=== PATIENT | male | born 1985 | race Caucasian/White ===

== ENCOUNTER 2018-08-14 10:34 | Emergency (ER) | payer SELFPAY ==
[2018-08-14 11:38] LABS: ALT (SGPT) 40 U/L (8-55); AST (SGOT) 38 U/L (5-34); Albumin 5.1 g/dL (3.5-5.0); Alkaline Phosphatase 100 U/L (40-150); Anion Gap 19 mmol/L (10-20); BUN (Urea Nitrogen) 10 mg/dL (8.9-20.6); Bilirubin, Total 1.4 mg/dL (0.2-1.2); Calc. Creatinine Clearance 0 mL/min (70-130); Calcium 10.2 mg/dL (7.8-10.44); Carbon Dioxide 24 mmol/L (22-29); Chloride 99 mmol/L (98-107); Estimated GFR-MDRD 62; Globulin 3.1 g/dL (2.4-3.5); Glucose 108 mg/dL (70-105); Lipase 5 U/L (8-78); Potassium 3.8 mmol/L (3.5-5.1); Protein, Total 8.2 g/dL (6.0-8.3); Sodium 138 mmol/L (136-145)
[2018-08-14 11:41] LABS: Bilirubin Moderate (Negative); Blood, Urine Negative (Negative); Clarity CLOUDY (Clear); Glucose, Urine (Dipstick) Negative (Negative); Leukocyte Small (Negative); Nitrite Positive (Negative); Protein, Urine (Dipstick) 100 mg/dL (Neg-Trace); Specific Gravity, Urine 1.032 (1.002-1.036)
[2018-08-14 11:43] LABS: Band 12 % (5-11); Eosinophils 6 % (0-10); Hemoglobin 17.6 g/dL (14.0-18.0); Lymphocytes 15 % (21-51); MDiff Complete? YES; Mean Corpuscular HGB CONC 34.4 g/dL (32.0-36.0); Mean Corpuscular Hemoglobin 31.7 pg (27.0-31.0); Mean Corpuscular Volume 91.9 fL (78.0-98.0); Mean Platelet Volume 7.5 fL (7.4-10.4); Monocytes 6 % (0-10); Neutrophil 61 % (42-75); Platelet Count 192 thou/uL (130-400); RBC Distribution Width 12.2 % (11.5-14.5); Red Blood Cell (RBC) Count 5.57 mill/uL (4.70-6.10); White Blood Cell (WBC) Count 7.7 thou/uL (4.8-10.8)
[2018-08-14 11:44] LABS: Bacteria/HPF None Seen HPF (None Seen); Pathc Cast-AUWi Flag 2.03 (0-2.49); RBC/HPF 0-3 HPF (0-3)
[2018-08-14 11:47] LABS: Hyaline Casts/LPF 0-3 HYALINE CAST LPF (0-3 Hyaline); Renal Epithelial None Seen HPF (0-3); Transitional Epithelial NONE SEEN HPF (0-3)
[2018-08-14] MEDS ORDERED: Promethazine HCl 25 MG/ML VIAL ONE (12:11)
[2018-08-14] MEDS ORDERED: Ondansetron PF 4 MG/2 ML Vial ONE (12:11)
== END 2018-08-14 15:36 | disposition home or self-care (01) ==
LOC: ERS 10:34
DX: R11.2 Nausea with vomiting, unspecified (principal); R10.9 Unspecified abdominal pain; F17.210 Nicotine dependence, cigarettes, uncomplicated
CPT/HCPCS: 36415; 80053; 81003; 81015; 83690; 85025; 87081; 87430; 96361; 96365; 96375; J2405; J2550

== ENCOUNTER 2019-08-26 12:55 | Emergency (ER) | payer SELFPAY ==
[2019-08-26] MEDS ORDERED: Morphine 4 MG/ML VIAL ONE (14:33)
== END 2019-08-26 14:47 | disposition home or self-care (01) ==
LOC: ERS 12:55
DX: M54.5 Low back pain (principal); F17.210 Nicotine dependence, cigarettes, uncomplicated
CPT/HCPCS: 96372; 99282; J2270

== ENCOUNTER 2020-02-26 13:52 | Observation (INO) | payer OTHER, SELFPAY ==
[2020-02-26] MEDS ORDERED: Morphine 4 MG/ML VIAL ONE (14:20)
[2020-02-26] MEDS ORDERED: Ondansetron PF 4 MG/2 ML Vial ONE ×3 (14:20→15:53)
[2020-02-26] MEDS ORDERED: Dexamethasone 10 MG/ML VIAL ONE (14:20)
[2020-02-26 14:21] LABS: #Basophils 0.1 thou/uL (0.0-0.2); #Eosinphils 0.1 thou/uL (0.0-0.7); #Lymphocytes 1.2 thou/uL (1.20-3.40); #Monocytes 0.9 thou/uL (0.11-0.59); #Neutrophils 6.1 thou/uL (1.40-6.50); %Basophils 0.8 % (0.0-1.0); %Eosinophils 0.6 % (0.0-10.0); %Lymphocytes 14.1 % (21.0-51.0); %Monocytes 11.1 % (0.0-10.0); %Neutrophils 73.4 % (42.0-75.0); Hemoglobin 18.5 g/dL (14.0-18.0); Mean Corpuscular HGB CONC 33.7 g/dL (32.0-36.0); Mean Corpuscular Hemoglobin 32.2 pg (27.0-31.0); Mean Corpuscular Volume 95.7 fL (78.0-98.0); Platelet Count 207 thou/uL (130-400); RBC Distribution Width 12.2 % (11.5-14.5); Red Blood Cell (RBC) Count 5.75 mill/uL (4.70-6.10); White Blood Cell (WBC) Count 8.4 thou/uL (4.8-10.8)
--- NOTE | 2020-02-26 14:35 | RAD ---
EXAM: Single view of the chest HISTORY: Chest pain COMPARISON: None FINDINGS: Single view of the chest shows a normal sized cardiomediastinal silhouette. There is eleva tion the right hemidiaphragm. There is no evidence of consolidation, mass, or pleural effusion. Hardware seen in the right clavicle. IMPRESSION: No evidence of acute cardiopulmonary disease
[2020-02-26] MEDS ORDERED: Azithromycin 500 MG VIAL ONE (14:43)
[2020-02-26] MEDS ORDERED: Sodium Chloride 0.9% 100 ML ONE (14:43)
[2020-02-26] MEDS ORDERED: cefTRIAXone\\ROCEPHIN 2 GM VIAL ONE (14:43)
[2020-02-26 14:44] LABS: ALT (SGPT) 90 U/L (8-55); AST (SGOT) 115 U/L (5-34); Albumin 5.3 g/dL (3.5-5.0); Alkaline Phosphatase 95 U/L (40-110); Anion Gap 19 mmol/L (10-20); BUN (Urea Nitrogen) 7 mg/dL (8.9-20.6); Bilirubin, Total 2.1 mg/dL (0.2-1.2); Calc. Creatinine Clearance 0 mL/min (70-130); Calcium 10.5 mg/dL (7.8-10.44); Carbon Dioxide 26 mmol/L (22-29); Chloride 97 mmol/L (98-107); Estimated GFR-MDRD 74; Globulin 2.7 g/dL (2.4-3.5); Glucose 110 mg/dL (70-105); Potassium 3.3 mmol/L (3.5-5.1); Sodium 139 mmol/L (136-145)
[2020-02-26] MEDS ORDERED: Aspirin Chewable 81 MG TAB ONE (14:44)
[2020-02-26 15:05] LABS: CKMB 5.9 ng/mL (0-6.6)
[2020-02-26] MEDS ORDERED: Lorazepam 2 MG/ML VIAL ONE ×2 (15:51→16:30)
[2020-02-26 15:56] LABS: SARS-CoV-2 NAA Rapid Test Not Detected (NotDetected)
[2020-02-26 16:05] LABS: Bacteria/HPF None Seen HPF (None Seen); Bilirubin 1+ (Negative); Blood, Urine Negative (Negative); Clarity Clear (Clear); Glucose, Urine (Dipstick) Normal (Negative); Ketone, Urine 100 mg/dL (Negative); Leukocyte Negative Leu/uL (Negative); Nitrite Negative (Negative); Protein, Urine (Dipstick) 200 mg/dL (Neg-Trace); RBC/HPF 0-3 HPF (0-3); Specific Gravity, Urine 1.031 (1.002-1.036); Squamous Epithelial 0-3 HPF (0-3); WBC/HPF 0-3 HPF (0-3); pH, Urine 6.5 (5.0-9.0)
[2020-02-26 16:12] LABS: Amphetamine Not Detected (NotDetected); Barbiturates Screen Not Detected (NotDetected); Benzodiazepine Screen Not Detected (NotDetected); Cocaine Metabolite Screen Not Detected (NotDetected); Medtox Control Line Valid? VALID (VALID); Medtox Reader # READER 4; Methadone Not Detected (NotDetected); Methamphetamine Not Detected (NotDetected); Opiate Screen Detected (NotDetected); Oxycodone Screen Not Detected (NotDetected); Phencyclidine (PCP) Not Detected (NotDetected); THC/Cannabinoid Screen Detected (NotDetected); Tricyclic Screen Not Detected (NotDetected)
[2020-02-26] MEDS ORDERED: Calcium Carbonate 500 MG ChewTAB PO PRN (17:00)
[2020-02-26] MEDS ORDERED: Sodium Chloride 0.9% 1,000 ML IV SCH (17:00)
[2020-02-26] MEDS ORDERED: HYDROcodone/Acetaminophen 5/325 mg Tablet PO PRN (17:00)
[2020-02-26] MEDS ORDERED: Ondansetron PF 4 MG/2 ML Vial IVP PRN (17:00)
[2020-02-26] MEDS ORDERED: Guaifenesin DM 100-10/5 ML UDCUP PO PRN (17:00)
[2020-02-26] MEDS ORDERED: Bisacodyl 10 MG SUPP PR PRN (17:00)
[2020-02-26] MEDS ORDERED: Acetaminophen 325 MG TAB PO PRN (17:00)
[2020-02-26] MEDS ORDERED: Nitroglycerin 0.4 MG TAB (25 Tab Bottle) PO PRN (17:00)
[2020-02-26] MEDS ORDERED: Senokot S 8.6-50 MG TAB PO PRN (17:00)
[2020-02-26] MEDS ORDERED: Morphine 2 MG/ML VIAL SLOW IVP PRN (17:08)
--- NOTE | 2020-02-26 17:14 | ULT ---
Sonogram right upper quadrant HISTORY: Right upper quadrant pain. FINDINGS: Gallbladder shows no stones. Echogenicity within the dependent portion favored to represent subtle non-shadowing echogenic debris within the dependent portion. No gallbladder wall thickening or pericholecystic fluid. Common duct is not well visualized. No evide nce of biliary obstruction. Liver is diffusely echogenic. No focal abnormalities. IMPRESSION : Biliary sludge is consistent with chronic gallbladder dyskinesis. No evidence of acute biliary obstru ction. Hepato-steatosis.
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
[2020-02-26 19:54] LABS: CKMB 4.4 ng/mL (0-6.6)
[2020-02-26 21:21] VITALS: BMI 29.3
[2020-02-26] MEDS: Famotidine 20 MG TAB PO SCH (22:13)
[2020-02-26] MEDS: hydrALAZINE 20 MG/ML VIAL SLOW IVP PRN (22:13)
[2020-02-27] MEDS ORDERED: Labetalol HCl 100 MG/20 ML VIAL SLOW IVP PRN (00:17)
[2020-02-27] MEDS ORDERED: Nitroglycerin 2% Ointment 1 INCH/1 GM Packet TOP SCH (00:30)
--- NOTE | 2020-02-27 03:29 | PDOC.EVN ---
Event Note - Event Note Event Note: Overnight, patient continued to be hypertensive with his heart rate fluctuating , going between SR and SA. Denies chest pain currently.
[2020-02-27 04:21] LABS: #Lymphocytes 0.7 thou/uL (1.20-3.40); #Monocytes 0.7 thou/uL (0.11-0.59); #Neutrophils 5.3 thou/uL (1.40-6.50); %Basophils 0.2 % (0.0-1.0); %Eosinophils 0.2 % (0.0-10.0); %Lymphocytes 10.2 % (21.0-51.0); %Monocytes 10.7 % (0.0-10.0); %Neutrophils 78.8 % (42.0-75.0); Hemoglobin 16.2 g/dL (14.0-18.0); Mean Corpuscular HGB CONC 33.3 g/dL (32.0-36.0); Mean Corpuscular Hemoglobin 31.8 pg (27.0-31.0); Mean Corpuscular Volume 95.5 fL (78.0-98.0); Platelet Count 176 thou/uL (130-400); RBC Distribution Width 12.2 % (11.5-14.5); Red Blood Cell (RBC) Count 5.09 mill/uL (4.70-6.10); White Blood Cell (WBC) Count 6.7 thou/uL (4.8-10.8)
[2020-02-27 05:11] LABS: Troponin I 0.037 ng/mL (< 0.028)
[2020-02-27 05:17] LABS: Hemoglobin A1c 5.9 % (4.0-6.0)
[2020-02-27 05:57] LABS: ALT (SGPT) 70 U/L (8-55); AST (SGOT) 69 U/L (5-34); Albumin 4.6 g/dL (3.5-5.0); Alkaline Phosphatase 76 U/L (40-110); Anion Gap 17 mmol/L (10-20); BUN (Urea Nitrogen) 8 mg/dL (8.9-20.6); Bilirubin, Total 1.1 mg/dL (0.2-1.2); Calc. Creatinine Clearance 153 mL/min (70-130); Carbon Dioxide 25 mmol/L (22-29); Chloride 101 mmol/L (98-107); Cholesterol 298 mg/dl (< 200 Desired); Estimated GFR-MDRD 80; Globulin 2.3 g/dL (2.4-3.5); Glucose 130 mg/dL (70-105); HDL Cholesterol 75 mg/dL (>60 Neg Risk); Potassium 4.2 mmol/L (3.5-5.1); Protein, Total 6.9 g/dL (6.0-8.3); Sodium 139 mmol/L (136-145)
[2020-02-27 06:11] LABS: LDL Cholesterol, Calculated 190 mg/dL; Triglycerides 109 mg/dL (Less than 150)
--- NOTE | 2020-02-27 09:09 | PDOC.HOSPP ---
- Subjective Encounter Date: 02/27/20 Encounter Time: 16:20 Subjective: Patient with improvement in his chest pain. Appears more positional. Seen by Dr. Jackson and plans to watch till tomorrow, likely no cath. - Objective Vital Signs & Weight: Vital Signs (12 hours) Temp Pulse Resp BP BP Pulse Ox 02/27/20 08:03 98.6 F 88 16 172/112 H 95 02/27/20 03:06 98.4 F 88 16 170/105 H 95 02/27/20 00:32 180/104 H 02/27/20 00:00 120 H 194/109 H 02/26/20 22:57 95 02/26/20 22:13 98 195/112 H Weight Weight 241 lb 3.2 oz I&O: 02/26/20 02/27/20 02/28/20 06:59 06:59 06:59 Intake Total 240 Balance 240 Result Diagrams: 02/27/20 03:59 02/27/20 03:59 Hospitalist ROS - Review of Systems Constitutional: denies: fever, chills Respiratory: denies: cough, shortness of breath Cardiovascular: reports: chest pain. denies: palpitations Gastrointestinal: denies: nausea, vomiting, abdominal pain - Medication Medications: Active Medications Generic Name Dose Route Start Last Admin Trade Name Freq PRN Reason Stop Dose Admin Famotidine 20 mg 02/26/20 21:00 02/26/20 22:13 Pepcid PO 20 mg BID ZEB Administration Hydralazine HCl 10 mg 02/26/20 21:38 02/26/20 22:13 Apresoline SLOW IVP 10 mg Q4H PRN Administration SBP > 180 and HR < 70 Morphine Sulfate 2 mg 02/26/20 17:08 02/26/20 23:04 Morphine SLOW IVP 2 mg Q4H PRN Administration Chest Pain/BP Elevations Ondansetron HCl 4 mg 02/26/20 17:00 02/26/20 23:59 Zofran IVP 4 mg Q6H PRN Administration Nausea/Vomiting - Exam General Appearance: NAD, awake alert ENT: moist mucosa ENT - other findings: very red, flushed face Heart: RRR, no murmur, no gallops, no rubs Respiratory: CTAB, no wheezes, no rales, no ronchi Gastrointestinal: soft, non-tender, non-distended, normal bowel sounds Psychiatric: normal affect, normal behavior, A&O x 3 Psychiatric - other findings: maybe slightly anxious affect Hosp A/P (1) Chest pain, rule out acute myocardial infarction Code(s): R07.9 - CHEST PAIN, UNSPECIFIED Status: Acute (2) Hypertension Code(s): I10 - ESSENTIAL (PRIMARY) HYPERTENSION Status: Acute (3) Alcohol abuse Code(s): F10.10 - ALCOHOL ABUSE, UNCOMPLICATED Status: Chronic (4) Tobacco abuse Code(s): Z72.0 - TOBACCO USE Status: Chronic (5) Marijuana abuse Code(s): F12.10 - CANNABIS ABUSE, UNCOMPLICATED Status: Chronic - Plan Stress test this morning negative but with depressed EF. Consulted Dr. Jackson and ordered ECHO. Possibly pericarditis per Dr. Jackson or heart strain from uncontrolled HTN. Trying BP control, colchicine, and NSAIDS. Watch overnight. Possibly home in AM if doing well. ASE protocol in case of EtOH withdrawal.
--- NOTE | 2020-02-27 12:25 | NM ---
Radionucleotide stress and rest myocardial perfusion scan with CT attenuation correction and SPECT im aging Left ventricular wall motion evaluation and ejection fraction HISTORY: Chest pain. FINDINGS: Adenosine protocol. There is homogeneous uptake of radiotracer throughout the left ventricu lar myocardium. No focal perfusion defect or reversibility. QGS analysis of gated SPECT images shows global hypokinesis. Most pronounced at the septum. Ejection fraction calculated at 40%. IMPRESSION : No scintigraphic evidence of ischemia. Depressed left ventricular ejection fraction of 40%
[2020-02-27] MEDS ORDERED: Lisinopril 20 MG TAB PO SCH (12:45)
[2020-02-27] MEDS ORDERED: Carvedilol 6.25 MG TAB PO SCH (12:45)
[2020-02-27] MEDS: Aspirin 325 mg Enteric Coated Tablet PO SCH (12:49)
[2020-02-27] MEDS: Famotidine 20 MG TAB PO SCH ×2 (12:50→20:18)
[2020-02-27] MEDS: Enoxaparin Sodium 40 MG/0.4 ML SYRINGE SC SCH ×2 (12:51→16:18)
--- NOTE | 2020-02-27 13:48 | CON ---
DATE OF CONSULTATION: 02/27/2020 REASON FOR CONSULTATION: Chest pain and cardiomyopathy. HISTORY OF PRESENT ILLNESS: Mr. Pack is a 34-year-old gentleman with no significant past medical history, who recently presented with chest pain. It began yesterday. It has been constant, although comes in waves, where it appears worse at times versus others. He described it as dull. It is worse with lying down and movement left and right. He recently underwent noninvasive stress study with no ischemia present. LVEF 40%. Echo is currently pending. Cardiac risk factors include positive tobacco use. PAST MEDICAL HISTORY: Shoulder surgery, spine surgery. HOME MEDICATION: None. ALLERGIES: TORADOL. REVIEW OF SYSTEMS: A 10-point review of systems is reviewed as above, otherwise negative. PHYSICAL EXAMINATION: GENERAL: Patient is a pleasant man, who is in no acute distress. The patient appears their stated age. VITAL SIGNS: Blood pressure 177/113, respirations 20. NEUROLOGIC: The patient is alert and oriented x3 with no focal neurologic deficits. HEENT: Sclerae without icterus. Mouth has moist mucous membranes with normal pallor. NECK: No JVD. Carotid upstroke brisk. No bruits bilaterally. LUNGS: Clear to auscultation with unlabored respirations. BACK: No scoliosis or kyphosis. CARDIAC: Regular rate and rhythm with normal S1 and S2. No S3 or S4 noted. No significant rubs, murmurs, thrills, or gallops noted throughout the precordium. PMI is not displaced. There is no parasternal heave. ABDOMEN: Soft, nontender, nondistended. No peritoneal signs present. No hepatosplenomegaly. No abnormal striae. EXTREMITIES: 2+ femoral and 2+ dorsalis pedis pulses. No cyanosis, clubbing, or edema. SKIN: No gross abnormalities. PERTINENT LABORATORY DATA: Hemoglobin 16.2, hematocrit 40.6. T-max 99.2. IMPRESSION: 1. Chest pain. 2. Mild cardiomyopathy. 3. Tobacco abuse. RECOMMENDATIONS: Mr. Pack does appear to have a mild cardiomyopathy. This may be the etiology to his chest pain. He may also have pericarditis versus myocarditis, although his CK-MB and troponin are within normal limits. At this point, I recommend ibuprofen. He does have a past allergy to Toradol only. He has taken ibuprofen and Naprosyn at home in the past without issues. We would also add colchicine. We would re-evaluate in a.m. We will also review echo. I did industrial relations counselor him on cessation of all tobacco products. Job ID: [id number]
[2020-02-27] MEDS: Ibuprofen 800 MG TAB PO SCH ×2 (14:48→20:18)
[2020-02-27] MEDS ORDERED: Thiamine HCl 200 MG/2 ML VIAL IM SCH (15:45)
[2020-02-27] MEDS ORDERED: Diazepam 5 MG TAB PO SCH (15:45)
[2020-02-27] MEDS ORDERED: Thiamine 100 MG TAB PO SCH (16:00)
[2020-02-27] MEDS ORDERED: Magnesium Oxide 400 MG TAB PO SCH (16:00)
[2020-02-27] MEDS: hydrALAZINE 20 MG/ML VIAL SLOW IVP PRN (16:27)
[2020-02-27] MEDS: Carvedilol 6.25 MG TAB PO SCH (17:03)
[2020-02-27] MEDS: Diazepam 5 MG TAB PO PRN ×2 (18:28→23:30)
[2020-02-27] MEDS: Colchicine 0.6 MG TAB PO SCH (20:18)
[2020-02-28] MEDS: Ibuprofen 800 MG TAB PO SCH ×3 (03:47→13:38)
[2020-02-28] MEDS ORDERED: Diazepam 5 MG TAB PO PRN (04:00)
[2020-02-28] MEDS ORDERED: Lisinopril 20 MG TAB PO SCH (09:00)
[2020-02-28] MEDS ORDERED: Hydrochlorothiazide 25 MG TAB PO SCH (09:00)
[2020-02-28] MEDS ORDERED: Folic Acid 1 MG TAB PO SCH (09:00)
[2020-02-28] MEDS ORDERED: Thiamine 100 MG TAB PO SCH (09:00)
[2020-02-28] MEDS ORDERED: Magnesium Oxide 400 MG TAB PO SCH (09:00)
[2020-02-28] MEDS ORDERED: Multivitamin W/ Minerals 1 TAB PO SCH (09:00)
[2020-02-28] MEDS: Aspirin 325 mg Enteric Coated Tablet PO SCH (10:01)
[2020-02-28] MEDS: Carvedilol 6.25 MG TAB PO SCH (10:01)
[2020-02-28] MEDS: Colchicine 0.6 MG TAB PO SCH (10:02)
[2020-02-28] MEDS: Famotidine 20 MG TAB PO SCH (10:02)
[2020-02-28] MEDS: Enoxaparin Sodium 40 MG/0.4 ML SYRINGE SC SCH (10:02)
[2020-02-28] MEDS ORDERED: Senokot S 8.6-50 MG TAB PO PRN (11:00)
[2020-02-28 12:59] VITALS: BP 151/100
[2020-02-28 13:00] VITALS: TEMP 98.4
--- NOTE | 2020-02-28 13:26 | PRG ---
DATE OF SERVICE: 02/28/2020 SUBJECTIVE: Mr. Pack is feeling much better today. He states he could finally lie flat overnight. He still has some chest pressure, but is much better versus yesterday. OBJECTIVE: VITAL SIGNS: Blood pressure 151/100, pulse 74, temperature 98.4. LUNGS: Clear to auscultation. HEART: Regular rate and rhythm. ABDOMEN: Soft, nontender, nondistended. EXTREMITIES: No edema. IMPRESSION: Pericarditis. RECOMMENDATIONS: Overall, LVEF did appear to be 45% to 50%, but likely close to 50%. Continue current treatment. Continue ibuprofen 800 mg one p.o. t.i.d. for 2 weeks in addition to colchicine 0.6 mg one p.o. t.i.d. I did state that if he began having loose stools, to cut back on the colchicine to 0.6 mg q.a.m. We will also recommend Protonix 40 q.a.m. due to gastric irritation. We will also recommend adding hydrochlorothiazide for blood pressure management. Once blood pressure is stable, he will be okay from my standpoint to discharge home with close outpatient followup. Job ID: [id number]
--- NOTE | 2020-02-28 15:33 | PDOC.HOSPP ---
- Subjective Encounter Date: 02/28/20 Encounter Time: 09:30 Subjective: Patient without further chest pain. Understand he needs to stop smoking and drinking alcohol. - Objective Vital Signs & Weight: Vital Signs (12 hours) Temp Pulse Resp BP BP Pulse Ox 02/28/20 12:03 151/100 H 02/28/20 11:50 98.4 F 74 13 151/100 H 94 L 02/28/20 10:02 160/101 H 02/28/20 10:01 160/101 H 02/28/20 08:00 160/101 H 02/28/20 07:40 97.6 F 64 13 160/101 H 95 02/28/20 03:50 98.2 F 71 18 157/102 H 95 Weight Weight 241 lb 3.2 oz I&O: 02/27/20 02/28/20 02/29/20 06:59 06:59 06:59 Intake Total 240 1800 480 Output Total 1025 Balance 240 775 480 Result Diagrams: 02/27/20 03:59 02/27/20 03:59 Hospitalist ROS - Review of Systems Constitutional: denies: fever, chills Respiratory: denies: cough, shortness of breath Cardiovascular: denies: chest pain, palpitations Gastrointestinal: denies: nausea, vomiting, abdominal pain - Exam General Appearance: NAD, awake alert ENT: moist mucosa Heart: RRR, no murmur, no gallops, no rubs Respiratory: CTAB, no wheezes, no rales, no ronchi Gastrointestinal: soft, non-tender, non-distended, normal bowel sounds Psychiatric: normal affect, normal behavior, A&O x 3 Hosp A/P (1) Chest pain, rule out acute myocardial infarction Code(s): R07.9 - CHEST PAIN, UNSPECIFIED Status: Acute (2) Hypertension Code(s): I10 - ESSENTIAL (PRIMARY) HYPERTENSION Status: Acute (3) Alcohol abuse Code(s): F10.10 - ALCOHOL ABUSE, UNCOMPLICATED Status: Chronic (4) Tobacco abuse Code(s): Z72.0 - TOBACCO USE Status: Chronic (5) Marijuana abuse Code(s): F12.10 - CANNABIS ABUSE, UNCOMPLICATED Status: Chronic - Plan Stress test yesterday negative but with depressed EF. Consulted Dr. Jackson and ordered ECHO redemonstrating decreased EF. Possibly pericarditis per Dr. Jackson or heart strain from uncontrolled HTN. Trying BP control, colchicine, and NSAIDS. Cleared for d/c this morning and f/u in clinic in [address] Jackson.
--- NOTE | 2020-02-28 19:02 | DIS ---
DATE OF ADMISSION: 02/26/2020 DATE OF DISCHARGE: 02/28/2020 PRIMARY CARE PHYSICIAN: Praveen Gonzales. REASON FOR ADMISSION: Chest pain. DIAGNOSES AT DISCHARGE: 1. Chest pain, resolved. 2. Hypertension. 3. Depressed ejection fraction. 4. Tobacco abuse. 5. Alcohol abuse. 6. Marijuana abuse. PROCEDURES: 1. Ultrasound of right upper quadrant showing biliary sludge consistent with chronic gallbladder dyskinesia. No evidence of acute biliary obstruction. There is hepatosteatosis. 2. Nuclear medicine cardiac stress testing showing no evidence for ischemia with a depressed left ejection fraction of 40%. 3. Echocardiogram showing ejection fraction of 45% to 50%. No other significant abnormalities. CONSULTATIONS: Cardiology, Dr. Jackson. SUMMARY OF HOSPITAL COURSE: This is a 34-year-old white male with a history of left-sided chest pain radiating to his left shoulder and upper arm started the day before admission. He presented to the emergency room. There, he was noted to have some elevated liver function tests, thought to be secondary to his alcohol intake and right upper quadrant ultrasound showing fatty liver. He also had some moderately elevated blood pressures. Negative troponins and negative EKG. He was monitored in the hospital. Troponins came back negative. He had a nuclear medicine stress test with above results. Due to the decreased ejection fraction, we did consult Cardiology, Dr. Jackson. He ordered an echocardiogram. On further eliciting details about the pain, Dr. Jakcson determined that the pain was likely either the chest wall or it was possible pericardial inflammation. He did start the patient on colchicine and NSAIDs with resolution of his chest pain. On the day of discharge, he was having some elevated blood pressure, so he did start the patient on hydrochlorothiazide as well. He has recommended the patient to follow up with him in his clinic in 2 weeks. The patient has been instructed to stop all alcohol and tobacco and to establish with a primary care doctor. DISCHARGE MANAGEMENT: Discharged home. ACTIVITY: As tolerated. DIET: Healthy-heart diet. FOLLOWUP: Follow up with Dr. Jackson in 2 weeks. DISCHARGE MEDICATIONS: 1. Colchicine 0.6 mg twice a day, 30 tablets dispensed. 2. Hydrochlorothiazide 12.5 mg daily, 30 tablets dispensed. 3. Motrin 800 mg 3 times a day, 45 tablets dispensed. 4. Protonix 40 mg daily while on the ibuprofen, 15 tablets dispensed. Job ID: [id number]
== END 2020-02-28 14:50 | disposition home or self-care (01) ==
LOC: ERS 13:52 → ERHOLD 17:01 → 2NO 21:12
PROVIDERS: ADMIT Internal Medicine; ATTEND Internal Medicine
DX: R07.81 Pleurodynia (principal); I10 Essential (primary) hypertension; R93.1 Abnormal findings on diagnostic imaging of heart and coronary circulation; F17.210 Nicotine dependence, cigarettes, uncomplicated; F10.10 Alcohol abuse, uncomplicated; F12.10 Cannabis abuse, uncomplicated; E86.0 Dehydration; R79.89 Other specified abnormal findings of blood chemistry; K76.0 Fatty (change of) liver, not elsewhere classified; I42.9 Cardiomyopathy, unspecified; Z20.828 Contact with and (suspected) exposure to other viral communicable diseases; Z88.6 Allergy status to analgesic agent
CPT/HCPCS: 36415; 71045; 76705; 78452; 80053; 80061; 80306; 81003; 81015; 82553; 83036; 83605; 83690; 83880; 84443; 84484; 85025; 85379; 87040; 87086; 93005; 93017; 93306; 94760; 96361; 96365; 96372; 96375; 96376; A9500; G0378; J0153; J0360; J0456; J0696; J1100; J1650; J2060; J2270; J2405; J3490; U0002

== ENCOUNTER 2020-04-02 12:58 | Emergency (ER) | payer SELFPAY ==
[2020-04-02] MEDS ORDERED: Ibuprofen 800 MG TAB ONE (13:41)
[2020-04-02] MEDS ORDERED: Colchicine 0.6 MG TAB PO SCH (14:00)
[2020-04-02 14:02] LABS: #Basophils 0.1 thou/uL (0.0-0.2); #Eosinphils 0.1 thou/uL (0.0-0.7); #Lymphocytes 1.4 thou/uL (1.20-3.40); #Monocytes 0.9 thou/uL (0.11-0.59); #Neutrophils 4.4 thou/uL (1.40-6.50); %Lymphocytes 20.6 % (21.0-51.0); %Monocytes 13.1 % (0.0-10.0); %Neutrophils 64.4 % (42.0-75.0); Hemoglobin 16.4 g/dL (14.0-18.0); Mean Corpuscular HGB CONC 33.9 g/dL (32.0-36.0); Mean Corpuscular Hemoglobin 32.6 pg (27.0-31.0); Mean Platelet Volume 7.2 fL (7.4-10.4); Platelet Count 229 thou/uL (130-400); RBC Distribution Width 12.3 % (11.5-14.5); Red Blood Cell (RBC) Count 5.04 mill/uL (4.70-6.10); White Blood Cell (WBC) Count 6.8 thou/uL (4.8-10.8)
[2020-04-02 14:28] LABS: ALT (SGPT) 81 U/L (8-55); AST (SGOT) 82 U/L (5-34); Albumin 4.6 g/dL (3.5-5.0); Alkaline Phosphatase 73 U/L (40-110); Anion Gap 17 mmol/L (10-20); BUN (Urea Nitrogen) 8 mg/dL (8.9-20.6); Bilirubin, Total 0.6 mg/dL (0.2-1.2); CK (CPK) 375 U/L (30-200); Calc. Creatinine Clearance 0 mL/min (70-130); Carbon Dioxide 26 mmol/L (22-29); Chloride 100 mmol/L (98-107); Estimated GFR-MDRD Greater than 90; Globulin 2.4 g/dL (2.4-3.5); Glucose 106 mg/dL (70-105); Potassium 3.7 mmol/L (3.5-5.1); Sodium 139 mmol/L (136-145)
--- NOTE | 2020-04-02 14:34 | RAD ---
PORTABLE CHEST: Date: 04/02/2020 HISTORY: Chest pain. Comparison made to exam of 03/21/2020. FINDINGS: There is some linear stranding and parenchymal opacity in the right lung base with elevated right hem idiaphragm. These findings are stable from the recent study. The left lung is well aerated and clear. Heart and mediastinum unremarkable. IMPRESSION: Atelectasis and density in the right infrahilar lung base with elevated right hemidiaphragm. Patient had recent CT chest of 03/21/2020. Findings appear stable. POS: [facility]
[2020-04-02] MEDS ORDERED: Labetalol HCl 100 MG/20 ML VIAL ONE (14:50)
--- NOTE | 2020-04-07 12:12 | EKG ---
Test Reason : Blood Pressure : / mmHG Vent. Rate : 075 BPM Atrial Rate : 075 BPM P-R Int : 166 ms QRS Dur : 108 ms QT Int : 408 ms P-R-T Axes : 046 078 077 degrees QTc Int : 455 ms Sinus rhythm with marked sinus arrhythmia Possible Left atrial enlargement Nonspecific ST abnormality Abnormal ECG Sub elevation diffusely Confirmed by JILLIAN HAIR M.D. ([id number]), clinical editor YONAS BARCENAS ([id number]) on 04/07/2020 12:11:44 PM Referred By: Confirmed By:JILLIAN HAIR M.D.
== END 2020-04-02 16:34 | disposition home or self-care (01) ==
LOC: ERS 12:58
DX: I10 Essential (primary) hypertension (principal); R07.89 Other chest pain; F17.210 Nicotine dependence, cigarettes, uncomplicated; Z79.899 Other long term (current) drug therapy
CPT/HCPCS: 36415; 71045; 80053; 82550; 83880; 84484; 85025; 93005; 94760

== ENCOUNTER 2020-05-21 22:24 | Inpatient (IN) | payer OTHER, SELFPAY ==
[~2020-05-21 22:24] MED LIST: Iopamidol-370 76% 500 ML 1 ML ONE
[2020-05-21 22:46] LABS: #Basophils 0.1 thou/uL (0.0-0.2); #Eosinphils 0.1 thou/uL (0.0-0.7); #Lymphocytes 2.3 thou/uL (1.20-3.40); #Monocytes 0.7 thou/uL (0.11-0.59); #Neutrophils 5.6 thou/uL (1.40-6.50); %Eosinophils 1.5 % (0.0-10.0); %Monocytes 8.2 % (0.0-10.0); %Neutrophils 63.2 % (42.0-75.0); Hemoglobin 17.8 g/dL (14.0-18.0); Mean Corpuscular HGB CONC 34.5 g/dL (32.0-36.0); Mean Corpuscular Hemoglobin 33.2 pg (27.0-31.0); Mean Corpuscular Volume 96.2 fL (78.0-98.0); Mean Platelet Volume 6.7 fL (7.4-10.4); Platelet Count 288 thou/uL (130-400); RBC Distribution Width 12.2 % (11.5-14.5); Red Blood Cell (RBC) Count 5.36 mill/uL (4.70-6.10); White Blood Cell (WBC) Count 8.8 thou/uL (4.8-10.8)
[2020-05-21 23:02] LABS: ALT (SGPT) 70 U/L (8-55); AST (SGOT) 77 U/L (5-34); Albumin 4.4 g/dL (3.5-5.0); Alkaline Phosphatase 100 U/L (40-110); Anion Gap 18 mmol/L (10-20); BUN (Urea Nitrogen) 8 mg/dL (8.9-20.6); Bilirubin, Total 0.3 mg/dL (0.2-1.2); CK (CPK) 461 U/L (30-200); Calc. Creatinine Clearance 0 mL/min (70-130); Calcium 8.9 mg/dL (7.8-10.44); Carbon Dioxide 24 mmol/L (22-29); Chloride 104 mmol/L (98-107); Estimated GFR-MDRD 70; Globulin 2.7 g/dL (2.4-3.5); Glucose 123 mg/dL (70-105); Lipase 27 U/L (8-78); Potassium 3.7 mmol/L (3.5-5.1); Protein, Total 7.1 g/dL (6.0-8.3); Sodium 142 mmol/L (136-145)
[2020-05-21 23:24] LABS: CKMB 6.3 ng/mL (0-6.6)
[2020-05-21] MEDS ORDERED: Morphine 4 MG/ML VIAL ONE (23:53)
[2020-05-22] MEDS ORDERED: Ibuprofen 800 MG TAB ONE (00:23)
[2020-05-22] MEDS ORDERED: Colchicine 0.6 MG TAB PO SCH (00:45)
[2020-05-22] MEDS ORDERED: Sodium Chloride 0.9% 1,000 ML IV SCH (01:15)
--- NOTE | 2020-05-22 01:18 | PDOC.HHP ---
Hospitalist HPI - History of Present Illness Chest pain History of Present Illness: 35-year-old gentleman with a history of alcohol abuse, history of pericarditis presents to the emergency department with a complaint of progressive worsening of chest pain. Patient reports intermittent chest pain since his diagnosis of pericarditis. He reports sudden worsening of chest pain since yesterday. Patient rated the chest pain at 7 out of 10 in maximum severity, nonradiating, worse with breathing, associated with tightness. He denied palpitation he denied diaphoresis but reported associated nausea. Patient reports binging on alcohol recently. He has been drinking a pint of vodka per day over the last f ew days. His troponin is mildly elevated in the ED. Chest x-ray unremarkable. Patient also reported dark-colored stool. His stool was Hemoccult positive in the ED. Patient was given ibuprofen and IV fluids in the ED. He is admitted for further evaluation and management. Hospitalist ROS - Review of Systems Other: Except as documented, all other systems reviewed and negative. - Medication Medications: Medication Instructions Recorded Confirmed Type Colchicine 0.6 mg PO BID #30 tab 02/28/20 Rx Aspirin 325 mg PO BID 05/22/20 05/22/20 History Ibuprofen [Motrin] 800 mg PO BID 05/22/20 05/22/20 History Losartan/Hydrochlorothiazide 1 tablet PO DAILY 05/22/20 05/22/20 History [Losartan-Hctz 100-12.5 mg Tab] cloNIDine [Catapres] 0.1 mg PO PRN PRN 05/22/20 05/22/20 History Hospitalist History - Past Medical History Other Medical History: Pericarditis, hypertension, alcohol abuse. - Past Surgical History Other Surgical History: Right shoulder surgery, low spine surgery. - Family History Other Family History: Father had an AL - Social History Smoking Status: Current every day smoker Alcohol: reports: Heavy Drugs: reports: none - Exam General Appearance: NAD, awake alert Eye: PERRL, anicteric sclera ENT: normocephalic atraumatic, no oropharyngeal lesions, moist mucosa Neck: supple, symmetric, no JVD, no thyromegaly Heart: RRR (Tachycardic), no murmur, no gallops Respiratory: CTAB, no wheezes, no rales, no ronchi, normal chest expansion Gastrointestinal: soft, non-tender, non-distended, normal bowel sounds Extremities: no cyanosis, no edema Skin: normal turgor Neurological: cranial nerve grossly intact, no weakness, no focal deficits Musculoskeletal: normal tone, normal strength Psychiatric: normal affect, normal behavior, A&O x 3 Hospitalist Results - Labs Result Diagrams: 05/21/20 22:37 05/21/20 22:37 Lab results: WBC 8.8 thou/uL (4.8-10.8) 05/21/20 22:37 Hgb 17.8 g/dL (14.0-18.0) 05/21/20 22:37 Hct 51.5 % (42.0-52.0) 05/21/20 22:37 MCV 96.2 fL (78.0-98.0) 05/21/20 22:37 Plt Count 288 thou/uL (130-400) 05/21/20 22:37 Neutrophils % 63.2 % (42.0-75.0) 05/21/20 22:37 Sodium 142 mmol/L (136-145) 05/21/20 22:37 Potassium 3.7 mmol/L (3.5-5.1) 05/21/20 22:37 Chloride 104 mmol/L (98-107) 05/21/20 22:37 Carbon Dioxide 24 mmol/L (22-29) 05/21/20 22:37 BUN 8 mg/dL (8.9-20.6) L 05/21/20 22:37 Creatinine 1.19 mg/dL (0.7-1.3) 05/21/20 22:37 Glucose 123 mg/dL (70-105) H 05/21/20 22:37 Calcium 8.9 mg/dL (7.8-10.44) 05/21/20 22:37 Total Bilirubin 0.3 mg/dL (0.2-1.2) 05/21/20 22:37 AST 77 U/L (5-34) H 05/21/20 22:37 ALT 70 U/L (8-55) H 05/21/20 22:37 Alkaline Phosphatase 100 U/L (40-110) 05/21/20 22:37 Creatine Kinase 461 U/L (30-200) H 05/21/20 22:37 CK-MB (CK-2) 6.3 ng/mL (0-6.6) 05/21/20 22:37 Troponin I 0.029 ng/mL (< 0.028) H 05/21/20 22:37 Serum Total Protein 7.1 g/dL (6.0-8.3) 05/21/20 22:37 Albumin 4.4 g/dL (3.5-5.0) 05/21/20 22:37 Lipase 27 U/L (8-78) 05/21/20 22:37 - EKG Interpretation EKG: Sinus tachycardia. - Radiology Interpretation Chest x-ray Status: report reviewed by me (No acute process.) Hospitalist H&P A/P - Problem (1) History of pericarditis Code(s): Z86.79 - PERSONAL HISTORY OF OTHER DISEASES OF THE CIRCULATORY SYSTEM Status: Acute (2) GI bleed Code(s): K92.2 - GASTROINTESTINAL HEMORRHAGE, UNSPECIFIED Status: Acute (3) Chest pain, rule out acute myocardial infarction Code(s): R07.9 - CHEST PAIN, UNSPECIFIED Status: Acute (4) Hypertension Code(s): I10 - ESSENTIAL (PRIMARY) HYPERTENSION Status: Acute (5) Alcohol abuse Code(s): F10.10 - ALCOHOL ABUSE, UNCOMPLICATED Status: Chronic (6) Tobacco abuse Code(s): Z72.0 - TOBACCO USE Status: Chronic (7) Elevated troponin Code(s): R77.8 - OTHER SPECIFIED ABNORMALITIES OF PLASMA PROTEINS Status: Acute - Plan Plan: Placed under observation. Telemetry No anticoagulation aspirin given GI bleed. Continue colchicine for acute pericarditis Trend troponin IV Protonix twice daily GI consult. Continue home dose hydrochlorothiazide. Add amlodipine if blood pressure uncontrolled with hydrochlorothiazide. Cardiology consult. Repeat echocardiogram.
[2020-05-22] MEDS: Morphine 2 MG/ML VIAL SLOW IVP PRN ×5 (03:14→22:03)
[2020-05-22] MEDS: Ondansetron PF 4 MG/2 ML Vial IVP PRN ×3 (03:18→20:51)
[2020-05-22 05:03] LABS: Troponin I 0.051 ng/mL (< 0.028)
[2020-05-22] MEDS: Pantoprazole 40 MG VIAL IVP SCH ×2 (06:22→20:42)
[2020-05-22 07:16] LABS: Troponin I 0.045 ng/mL (< 0.028)
--- NOTE | 2020-05-22 07:17 | RAD ---
PORTABLE CHEST: Date: 05/21/2020 HISTORY: Chest pain. COMPARISON: 04/02/2020 chest examination. FINDINGS: Heart size within normal limits. There is elevation of the right hemidiaphragm. Parenchymal changes i n the right base appear to represent some scarring, slightly more prominent than on the prior exam, a lthough this may just be related to positional differences. Postop changes of the right clavicle are seen. IMPRESSION: Chronic appearing parenchymal change in the right base. POS: OFF
--- NOTE | 2020-05-22 07:27 | CT ---
CT ANGIO OF CHEST PERFORMED WITH INTRAVENOUS CONTRAST ENHANCEMENT WITH 3D RECONSTRUCTIONS: HISTORY: Chest pain. Diagnosed with pericarditis in March. COMPARISON: CT of the chest of 03/21/2020. FINDINGS: There is elevation to the right hemidiaphragm. There is scarring seen within the right lung base. N o infiltrative process. No pulmonary nodules or pleural effusions. Thoracic aorta is normal in caliber. There is good pulmonary artery opacification, n CT evidence for pulmonary embolus. Abdomen findings will be described in a subsequent report. IMPRESSION: No CT evidence for pulmonary embolus. POS: OFF
--- NOTE | 2020-05-22 07:30 | CT ---
CT ABDOMEN AND PELVIS PERFORMED WITH CONTRAST ENHANCEMENT: HISTORY: Chest pain. Pericarditis. Having black stool for 2 days. FINDINGS: Elevated right hemidiaphragm with more linear change in the right base is consistent with scar. Ther e are diffuse fatty changes of the liver. The spleen is within normal limits of size. The pancreas and gallbladder regions appear unremarkable. Right and left adrenal glands and right and left kidneys are normal in size. There is no significant periaortic or mesenteric adenopathy. No bowel wall abnormalities noted. CT OF PELVIS PERFORMED WITH CONTRAST ENHANCEMENT: The appendix is normal. No adenopathy, mass, or free fluid. Review of osseous structures shows arthritic change of the spine. IMPRESSION: Diffuse fatty change of the liver. No acute findings of the abdomen or pelvis. POS: OFF
[2020-05-22 08:25] VITALS: BMI 30.5
--- NOTE | 2020-05-22 08:32 | ULT ---
GALLBLADDER ULTRASOUND: HISTORY: GI bleed, abdominal pain, nausea, diarrhea, history of alcoholism. FINDINGS: There is evidence for hepatomegaly with very heterogeneous echogenicity throughout the liver includin g some prominent hyperechoic changes as well as some less prominent hyperechoic changes probably rela kenna to extensive and asymmetric fatty infiltration. Common bile duct 0.5 cm. No evidence of gallst ones, wall thickening, edema, or pericholecystic fluid. There is some scattered sludge in the gallbl adder, but no overt gallstones. Negative Villarreal's sign. Unremarkable right kidney and visualized pa ncreas. IMPRESSION: Hepatomegaly with heterogeneous increased linear echogenicity as well as some areas of decreased echo genicity probably related to fatty change in the liver. No evidence of gallstones, although there is minimal sludge. No common duct dilatation. POS: RRE
[2020-05-22] MEDS ORDERED: FLU VACC QS2020-21(6MOS UP)/PF 60 MCG/0.5 ML SYRINGE IM ONE (09:15)
[2020-05-22] MEDS: Metoprolol Tartrate 25 MG TAB PO SCH ×2 (10:34→20:41)
[2020-05-22 12:06] LABS: SARS-CoV-2 MS2 Positive; SARS-CoV-2 N Gene Negative; SARS-CoV-2 S Gene Negative; SARS-CoV-2 by NAA Not Detected (NotDetected); SARS-CoV-2 orf1ab Negative
--- NOTE | 2020-05-22 12:45 | PDOC.HOSPP ---
- Subjective Encounter Date: 05/22/20 Encounter Time: 12:44 Subjective: Mr. Pack was seen today in follow-up. He complains of left upper quadrant pain. He also feels nervous, and says he could not sleep last night. He admits to heavy drinking. He says over the past few days he drank a oint of vodka a day, and prior to this he would drink a pint of vodka every few days. - Objective Vital Signs & Weight: Vital Signs (12 hours) Temp Pulse Resp BP BP Pulse Ox 05/22/20 07:25 97.9 F 85 16 158/113 H 94 L 05/22/20 04:00 98.1 F 85 17 179/110 H 92 L 05/22/20 02:04 98.9 F 100 20 157/98 H 95 Weight Weight 244 lb 8 oz I&O: 05/21/20 05/22/20 05/23/20 06:59 06:59 06:59 Intake Total 855 Balance 855 Result Diagrams: 05/21/20 22:37 05/21/20 22:37 Hospitalist ROS - Medication Medications: Active Medications Generic Name Dose Route Start Last Admin Trade Name Freq PRN Reason Stop Dose Admin Sodium Chloride 1,000 mls @ 75 mls/hr 05/22/20 01:15 05/22/20 03:15 Normal Saline 0.9% IV 05/22/20 13:16 1,000 mls .[id number] ZEB Administration Metoprolol Tartrate 12.5 mg 05/22/20 09:00 05/22/20 10:34 Metoprolol Tartrate 25 Mg Tab PO 12.5 mg BID ZEB Administration Morphine Sulfate 2 mg 05/22/20 02:53 05/22/20 07:18 Morphine 2 Mg/Ml Vial SLOW IVP 2 mg Q4H PRN Administration Severe Pain (7-10) Ondansetron HCl 4 mg 05/22/20 01:09 05/22/20 10:35 Ondansetron Pf 4 Mg/2 Ml Vial IVP 4 mg Q6H PRN Administration Nausea/Vomiting Pantoprazole Sodium 40 mg 05/22/20 09:00 05/22/20 06:22 Pantoprazole 40 Mg Vial IVP 40 mg BID ZEB Administration - Exam Eye: PERRL, anicteric sclera Heart: RRR, no murmur, no gallops, no rubs, normal peripheral pulses Respiratory: CTAB, no wheezes, no rales, no ronchi, normal chest expansion Gastrointestinal: soft, non-distended, normal bowel sounds, tender to palpation (+ mild left upper quadrant tenderness, no rebound or guarding) Extremities: no cyanosis, no edema Hosp A/P (1) Chest pain Code(s): R07.9 - CHEST PAIN, UNSPECIFIED Status: Acute (2) GI bleed Code(s): K92.2 - GASTROINTESTINAL HEMORRHAGE, UNSPECIFIED Status: Acute (3) Hypertension Code(s): I10 - ESSENTIAL (PRIMARY) HYPERTENSION Status: Chronic (4) Alcohol abuse Code(s): F10.10 - ALCOHOL ABUSE, UNCOMPLICATED Status: Chronic - Plan * Chest pain- possibly related to pericarditis- continue Colchicine. There could be a GI component as well * Continue Protonix IV * Will leave him npo pending GI evaluation * Alcohol abuse- will add a Banana bag, and Ativan as needed. Brief counseling was offered for alcohol cessation * HTN- blood pressure is elevated- will add Labetalol to his regimen
[2020-05-22] MEDS ORDERED: Labetalol HCl 100 MG/20 ML VIAL SLOW IVP PRN (12:48)
[2020-05-22] MEDS: Lorazepam 2 MG/ML VIAL SLOW IVP PRN ×3 (13:08→22:04)
[2020-05-22] MEDS: Multivitamins, Adult 10 ML, Folic Acid 1 MG, Thiamine HCl 100 MG in Dextrose 5 %-0.45 %... IV SCH (13:53)
--- NOTE | 2020-05-22 18:27 | CON ---
DATE OF CONSULTATION: 05/22/2020 REASON FOR ADMISSION: Melena and chest pain. HISTORY OF PRESENT ILLNESS: Mr. Pack is a 35-year-old male, who was admitted to the ER after a binge of heavy alcohol consumption with a chief complaint of having chest pain. The patient has recent history of pericarditis. The patient also relates having melenic stool for 3 days that began to clear yesterday. He did not have any hematemesis or coffee-ground emesis. The chest pain was reportedly intense on admission. Today, he reports localization of the pain to the left chest, in the left lower rib lateral area. The pain is worse with deep breathing. He denies having any localizing abdominal pain. He had a bowel movement this morning without further melena. His lab is significant for mildly elevated troponin-I. He does not have any previous significant GI history. He does consume up to a pint of vodka daily. HOME MEDICATIONS: Include: 1. Colchicine. 2. Losartan/hydrochlorothiazide. 3. Aspirin. 4. Motrin 800 mg b.i.d. 5. Clonidine as needed. ALLERGIES: KETOROLAC. PAST MEDICAL HISTORY: 1. Pericarditis. 2. Hypertension. 3. Right shoulder surgery. 4. Back surgery. SOCIAL HISTORY: The patient smokes a pack every 3 days. Consumes a pint of vodka daily. FAMILY HISTORY: Negative for any known GI problem, liver disease, or GI malignancy. REVIEW OF SYSTEMS: Ten-point review of systems did not show any pertinent positives or negatives. PHYSICAL EXAMINATION: VITAL SIGNS: Temperature 97.9, blood pressure 158/113, pulse of 85. GENERAL: He appears to be mildly tremulous, but alert and lucid, and answers questions appropriately. HEENT: Anicteric sclerae. NECK: Supple. CV: Shows normal S1, S2. Regular rate and rhythm. CHEST: Shows breath sounds, slightly coarse bronchial sounds over the left mid and left lower lung poole. ABDOMEN: Soft. Mildly protuberant. No distention. No tympany. No organomegaly. Liver is not palpable. He has active bowel sounds. No bruits. EXTREMITIES: Show no edema. LABORATORY DATA: WBCs 8.8, hemoglobin 17.8, platelet count of 288. Electrolytes within normal range. Creatinine 1.19, bilirubin 0.3, AST 77, ALT 70, and alkaline phosphatase 100. Troponin-I ranges between 0.029 and 0.051. Lipase of 27. Abdominal ultrasound showed fatty liver, no cholelithiasis. Abdominal pelvic CT was unremarkable except for fatty liver. Chest x-ray showed chronic parenchymal change in the right base, otherwise clear. Chest CT negative for pulmonary embolism. ASSESSMENT: 1. 3-day history of melena that has been clearing over the last 1 to 2 days with normal blood count. The patient has no history of Pepto-Bismol usage. I suspect he had limited gastrointestinal bleed that is now cleared. Blood count is stable. 2. Atypical chest pain with pain now evolving more left lateral lower thoracic area that is worse with breathing. The pain is pleuritic in nature and could suggest pleurisy or pleuritis. Abdominal exam is unremarkable without any localized tenderness. Abdominal CT and ultrasound are normal. 3. Alcohol abuse. RECOMMENDATIONS: 1. Proceed with diagnostic upper endoscopy tomorrow, the patient can eat today. Continue pantoprazole IV b.i.d. for now. 2. Further recommendations to follow pending above findings. Job ID: [id number]
--- NOTE | 2020-05-22 18:52 | CON ---
DATE OF CONSULTATION: REASON FOR CONSULTATION: Chest pain. HISTORY OF PRESENT ILLNESS: Mr. Pack is a 35-year-old gentleman, who was seen and evaluated in the past. He recently presented with chest pain. The chest pain has been constant. He states it is sharp. It is worse with lying down and lying on his left side. No other associated ameliorating or exacerbating factors present. The patient was last seen in February with similar symptoms. He does have a previous history of heavy alcohol use in addition to tobacco use. He does use aspirin and Motrin. PAST MEDICAL HISTORY: Previous pericarditis, hypertension, back surgery, and shoulder surgery. ALLERGIES: KETOROLAC. HOME MEDICATIONS: Include: 1. Losartan/hydrochlorothiazide. 2. Aspirin. 3. Motrin. SOCIAL HISTORY: Positive tobacco use. Positive alcohol use. REVIEW OF SYSTEMS: A 10-point review of systems is reviewed and is as above, otherwise negative. PHYSICAL EXAMINATION: GENERAL: Patient is a pleasant 35-year-old gentleman, who is in no acute distress. The patient appears their stated age. VITAL SIGNS: Blood pressure 168/94, pulse 69, and respirations 20. NEUROLOGIC: The patient is alert and oriented x3 with no focal neurologic deficits. HEENT: Sclerae without icterus. Mouth has moist mucous membranes with normal pallor. NECK: No JVD. Carotid upstroke brisk. No bruits bilaterally. LUNGS: Clear to auscultation with unlabored respirations. BACK: No scoliosis or kyphosis. CARDIAC: Regular rate and rhythm with normal S1 and S2. No S3 or S4 noted. No significant rubs, murmurs, thrills, or gallops noted throughout the precordium. PMI is not displaced. There is no parasternal heave. ABDOMEN: Soft, nontender, nondistended. No peritoneal signs present. No hepatosplenomegaly. No abnormal striae. EXTREMITIES: 2+ femoral and 2+ dorsalis pedis pulses. No cyanosis, clubbing, or edema. SKIN: No gross abnormalities. PERTINENT LABORATORY DATA: Hemoglobin 17.8, hematocrit 51.5, and platelet count 288. EKG; normal sinus rhythm, nonspecific ST-T wave changes. IMPRESSION: 1. Chest pain. 2. Alcohol use. RECOMMENDATIONS: Mr. Pack's symptoms are pleuritic versus pericardial. His echo did not suggest a pericardial effusion. LVEF was 50% to 55%. RECOMMENDATIONS: Include colchicine. He has had an allergy to Toradol, and has been on ibuprofen. We will try to avoid steroid use due to high relapse. I discussed the importance of Job ID: [id number]
[2020-05-22] MEDS: Colchicine 0.6 MG TAB PO SCH (20:41)
[2020-05-23] MEDS: Morphine 2 MG/ML VIAL SLOW IVP PRN ×2 (03:40→11:41)
[2020-05-23] MEDS: Lorazepam 2 MG/ML VIAL SLOW IVP PRN ×2 (03:40→11:42)
[2020-05-23] MEDS: Metoprolol Tartrate 25 MG TAB PO SCH (05:57)
[2020-05-23] MEDS ORDERED: Carvedilol 6.25 MG TAB PO SCH (09:00)
[2020-05-23] MEDS ORDERED: Amlodipine 5 MG TAB PO SCH (09:00)
--- NOTE | 2020-05-23 10:28 | OP ---
DATE OF PROCEDURE: 05/23/2020 SAW TAILER SURGEON: None. PROCEDURE: EGD with biopsies. INDICATION: 1. Melenic stools, without anemia. 2. Atypical chest pain, likely representing pleuritic etiology. 3. Alcohol abuse. 4. NSAID use, for recent treatment of pericardial pericarditis. MEDICATIONS: See Anesthesia record. FINDINGS: After discussion of the risks, benefits, and alternatives of the procedure, informed consent was obtained and witnessed. Pre-endoscopic cardiopulmonary examination was satisfactory. Time-out was performed before sedation was achieved. Sedation was achieved with Anesthesia assistance in the endoscopy unit. A Pentax adult upper endoscope was placed into the oropharynx and passed through the cricopharyngeus under direct visualization. The esophageal mucosa appeared normal throughout with a regular Z-line at 45 cm from the incisors. There was no evidence of any esophageal varices or any erosive esophagitis. The endoscope was advanced into the stomach. Forward and retroflexed views of the entire gastric mucosa were obtained. There were no gastric varices. There was no old blood or active bleeding in the stomach. In the gastric antrum, there is patchy erythema and edema consistent with [id number] gastritis. There were no erosions or ulcerations noted. Biopsies were obtained from the gastric antrum and body to rule out H. pylori infection. The endoscope was passed through the pylorus and into the first, second and third portions of the duodenum, which appeared normal. The upper endoscope was completely withdrawn and the patient allowed to recover. The patient tolerated the procedure well. There were no immediate postprocedure complications. IMPRESSION: 1. [id number] antral gastritis, nonerosive. Biopsy to rule out Helicobacter pylori. 2. Otherwise normal esophagogastroduodenoscopy. RECOMMENDATION: 1. Stop alcohol use. 2. Avoid or minimize NSAID use. 3. Follow up results of gastric biopsies. If H. pylori is present, treat with triple therapy and confirm eradication. 4. Once daily proton pump inhibitor for the next month. 5. Advance diet. 6. GI will sign off. Please call back anytime with questions or concerns. Job ID: [id number]
[2020-05-23] MEDS ORDERED: PROPOFOL 200 MG/20 ML VIAL ONE (10:57)
[2020-05-23] MEDS: Ondansetron PF 4 MG/2 ML Vial IVP PRN (11:41)
[2020-05-23] MEDS: Pantoprazole 40 MG VIAL IVP SCH (11:45)
[2020-05-23] MEDS: Colchicine 0.6 MG TAB PO SCH (11:45)
[2020-05-23 12:40] VITALS: TEMP 97.7
[2020-05-23] MEDS: Multivitamins, Adult 10 ML, Folic Acid 1 MG, Thiamine HCl 100 MG in Dextrose 5 %-0.45 %... IV SCH (12:56)
--- NOTE | 2020-05-23 13:58 | PDOC.HOSPP ---
- Subjective Encounter Date: 05/23/20 Encounter Time: 13:55 Subjective: Mr. Pack was seen today in follow-up of abdominal and chest pain. He notes some improvement in his symptoms Otherwise no complaints. - Objective Vital Signs & Weight: Vital Signs (12 hours) Temp Pulse Resp BP BP Pulse Ox 05/23/20 11:45 97.7 F 61 16 196/107 H 96 05/23/20 09:55 98.6 F 64 16 182/100 H 97 05/23/20 08:07 94 L 05/23/20 07:16 97.9 F 86 16 158/107 H 94 L 05/23/20 04:35 168/106 H 05/23/20 03:41 97.7 F 76 20 185/117 H 185/117 H 96 Weight Weight 244 lb I&O: 05/22/20 05/23/20 05/24/20 06:59 06:59 06:59 Intake Total 855 1070 Balance 855 1070 Result Diagrams: 05/21/20 22:37 05/21/20 22:37 Hospitalist ROS - Medication Medications: Active Medications Generic Name Dose Route Start Last Admin Trade Name Freq PRN Reason Stop Dose Admin Amlodipine Besylate 5 mg 05/23/20 09:00 05/23/20 11:43 Amlodipine 5 Mg Tab PO 5 mg DAILY ZEB Administration Carvedilol 6.25 mg 05/23/20 09:00 05/23/20 12:05 Carvedilol 6.25 Mg Tab PO Not Given BID ZEB Colchicine 0.6 mg 05/22/20 21:00 05/23/20 11:45 Colchicine 0.6 Mg Tab PO 0.6 mg BID ZEB Administration Multivitamins 10 ml/ Folic 1,011.2 mls @ 75 mls/hr 05/22/20 12:45 05/23/20 12:56 Acid 1 mg/ Thiamine HCl 100 mg IV 1,011.2 mls / Dextrose/Sodium Chloride Q24HR ZEB Administration Labetalol HCl 20 mg 05/22/20 12:48 05/22/20 16:48 Labetalol Hcl 100 Mg/20 Ml Vial SLOW IVP 4 ml Q4H PRN Administration SBP > 180 and HR >/= 70 Lorazepam 1 mg 05/22/20 12:43 05/23/20 11:42 Lorazepam 2 Mg/Ml Vial SLOW IVP 1 mg Q4H PRN Administration Anxiety/Agitation Morphine Sulfate 2 mg 05/22/20 02:53 05/23/20 11:41 Morphine 2 Mg/Ml Vial SLOW IVP 2 mg Q4H PRN Administration Severe Pain (7-10) Ondansetron HCl 4 mg 05/22/20 01:09 05/23/20 11:41 Ondansetron Pf 4 Mg/2 Ml Vial IVP 4 mg Q6H PRN Administration Nausea/Vomiting Pantoprazole Sodium 40 mg 05/22/20 09:00 05/23/20 11:45 Pantoprazole 40 Mg Vial IVP 40 mg BID ZEB Administration - Exam Eye: PERRL, anicteric sclera Heart: RRR, no murmur, no gallops, no rubs, normal peripheral pulses Respiratory: CTAB, no wheezes, no rales, no ronchi, normal chest expansion Gastrointestinal: soft, non-tender, non-distended, normal bowel sounds, no palpable masses, no hepatomegaly Extremities: no cyanosis, no edema Hosp A/P (1) Chest pain Code(s): R07.9 - CHEST PAIN, UNSPECIFIED Status: Acute (2) GI bleed Code(s): K92.2 - GASTROINTESTINAL HEMORRHAGE, UNSPECIFIED Status: Acute (3) Hypertension Code(s): I10 - ESSENTIAL (PRIMARY) HYPERTENSION Status: Chronic (4) Alcohol abuse Code(s): F10.10 - ALCOHOL ABUSE, UNCOMPLICATED Status: Chronic - Plan * Chest pain- possibly due to pericarditis- continue Colchicine * Abdominal pain- due to alcoholic gastritis- discussed the need to stop drinking * Continue Protonix BID * Stable for discharge home * HTN- blood pressure is elevated- continue the current medications with the addition of Clonidine as needed
--- NOTE | 2020-05-23 14:26 | PRG ---
DATE OF SERVICE: 05/23/2020 SUBJECTIVE: Mr. Pack feels better. He states he has had less pain. He is able to rest last evening. His EGD did suggest [id number] antral gastritis. Biopsy pending. Recommendation from GI was to avoid NSAID use or minimize NSAID use and stop alcohol use. OBJECTIVE: VITAL SIGNS: Blood pressure 182/100, pulse 64, temperature 98.6. LUNGS: Clear to auscultation. HEART: Regular rate and rhythm. ABDOMEN: Soft, nontender, nondistended. EXTREMITIES: No edema. IMPRESSION: 1. Pericarditis. 2. Alcohol abuse. 3. Gastritis. RECOMMENDATIONS: 1. Continue colchicine. 2. Stop alcohol use; he will need to likely proceed with some type of structured environment in order to stop ETOH. 3. Add low-dose ibuprofen. I am pleased that Mr. Pack is improving. Otherwise, I have no further recommendations. Overall, LVEF does appear normal. We will follow peripherally. Job ID: [id number]
[2020-05-23 16:27] VITALS: BP 174/110
--- NOTE | 2020-05-23 21:32 | DIS ---
DATE OF ADMISSION: 05/22/2020 DATE OF DISCHARGE: 05/23/2020 DISCHARGE DISPOSITION: Home. DISCHARGE DIAGNOSES: 1. Chest pain due to pericarditis. 2. Alcoholic gastritis. 3. Alcohol abuse. 4. Hypertension, poorly controlled. DISCHARGE MEDICATIONS: Include; 1. Thiamine 100 mg p.o. daily. 2. Protonix 40 mg p.o. b.i.d. 3. Amlodipine 5 mg p.o. daily. 4. Folic acid 1 mg p.o. daily. 5. Carvedilol 6.25 mg p.o. b.i.d. 6. Colchicine 0.6 mg p.o. b.i.d. 7. Clonidine 0.1 mg 2 to 3 times a day as needed for elevated blood pressure. 8. Lorazepam one half to one tablet p.o. t.i.d. as needed for anxiety and alcohol withdrawal. 9. Losartan/hydrochlorothiazide 100/12.5 one tablet p.o. daily. 10. Aspirin 325 mg p.o. b.i.d. IMAGING DONE DURING THE HOSPITAL STAY: The patient had a CT scan of the abdomen and pelvis showing some diffuse fatty liver. There was no acute findings otherwise. The patient also had a CT angiogram of the chest was showing no evidence of pulmonary embolism. The patient had an abdominal ultrasound showing some hepatomegaly with some heterogeneous increased linear echogenicity of the liver. There was no gallstones. The patient had an echocardiogram. It was a technically difficult study with a poor endocardial definition, but otherwise normal. The EF was estimated at 50% to 55%. The patient had an upper endoscopy showing [id number] antral gastritis, it was nonerosive, otherwise normal. CODE STATUS: Full code. ALLERGIES: TO KETORALAC OR TORADOL. HOSPITAL COURSE: Mr. Pack is a pleasant 35-year-old gentleman, who presented to the emergency room with complaints of left-sided abdominal pain and chest pain. It was more less pleuritic in nature. The abdominal pain was constant. The full details of which are outlined in the history and physical by Dr. Cordova. The patient was admitted and started on IV Protonix. GI was consulted and he underwent upper GI, which demonstrated evidence of gastritis, likely related to alcohol use. He was instructed to stop alcohol use. The patient plans to follow up at the [facility] and also plans to seek an outpatient alcohol treatment program. The patient also was complaining of chest pain. He had recently been diagnosed with pericarditis and it is felt that the chest plain likely represents pericarditis. He was started back on colchicine during his hospital stay with some improvement in his symptoms and instructed to continue this at the time of discharge. The patient was discharged on 05/23/2020, and again is going to follow up at the [facility]. Job ID: [id number]
--- NOTE | 2020-05-25 00:02 | PQF ---
CLINICAL DOCUMENTATION CLARIFICATION FORM: Dear : Artemio Keenan Date / Time: 05/25/20 0002 Please exercise your independent, professional judgment in responding to the clarification form. Clinical indicators are provided on the bottom of this form for your review In your clinical opinion based on clinical findings below, can you please identify the etiology of Melena if due to: Please check appropriate box(es): [ ] Gastritis [ ] Gastroplathy [ ] Adverse effect of NSAID [ X] Other diagnosis Alcoholic Gastritis____ [ ] Unable to determine Physician Signature: Date/Time: For continuity of documentation, please document condition throughout progress notes and discharge summary. Thank You To be completed by CDI/Coding staff for physician review: Present Clinical Indicators - Signs / Symptoms / Labs Results and Location in Medical Record [X] RBC 5.36, Hgb 17.8, Hct 51.5 Laboratory 05/21 [X] Stool Occult blood: Positive Microbiology 05/21 [X] Pt reported dark-colored stool. His stool was Hemoccult positive H&P p1 Dr Cordova 05/22 [X] Uses NSAID Procedure Case 05/23 [X] Mild-Moderate antral gastritis, non-erosive Procedure Dr Han 05/23 [X] Pathology: Reactive gastropathy Pathology report 05/23 Dr Almaguer Present Risk Factors Results and Location in Medical Record [X] HTN H&P p2 Dr Cordova 05/22 [X] Alcohol abuse H&P p2 Dr Cordova 05/22 [X] Smoker H&P p2 Dr Cordova 05/22 Present Treatments Results and Location in Medical Record [X] IV Zofran 40 mg OCT 17 [X] IV Protonix 40 mg OCT 17 [X] IVF NS 1L OCT 17 [X] Stool Occult blood Microbiology 05/21 [X] CT Abdomen Imaging Dr Peterson 05/21 [X] Abdominal ultrasound Imaging Dr Caldwell [X] EGD with Biopsy Procedure Case 05/23 CDS/Cable Splicer Helper Signature: [place] Josefina Urban Phone #: ext [phone] Date/Time: 05/25/2020 0002 This is a permanent part of the Medical Record MTDD
== END 2020-05-23 16:48 | disposition home or self-care (01) | DRG 314 ==
LOC: ERS 22:24 → 2NO 05-22 00:33
PROVIDERS: ADMIT Internal Medicine; ATTEND Internal Medicine
PROC: 0DB78ZX Excision of Stomach, Pylorus, Via Natural or Artificial Opening Endoscopic, Diagnostic (ICD-10-PCS; principal; 2020-05-23)
DX: I31.9 Disease of pericardium, unspecified (principal); K29.21 Alcoholic gastritis with bleeding; F10.10 Alcohol abuse, uncomplicated; I10 Essential (primary) hypertension; F17.210 Nicotine dependence, cigarettes, uncomplicated; Z20.828 Contact with and (suspected) exposure to other viral communicable diseases; Y90.7 Blood alcohol level of 200-239 mg/100 ml; Z28.21 Immunization not carried out because of patient refusal; Z88.8 Allergy status to other drugs, medicaments and biological substances; Z79.899 Other long term (current) drug therapy; Z79.82 Long term (current) use of aspirin
CPT/HCPCS: 36415; 71045; 71275; 74177; 76705; 80053; 80307; 82274; 82550; 82553; 83690; 84484; 85025; 85379; 87635; 88305; 88312; 93005; 93306; 94760; 96374; C9113; J2060; J2270; J2405; J2704; J3411; J7042; Q9967; U0003

== ENCOUNTER 2020-08-11 08:36 | Emergency (ER) | payer SELFPAY ==
[2020-08-11 09:14] LABS: #Basophils 0.1 thou/uL (0.0-0.2); #Eosinphils 0.1 thou/uL (0.0-0.7); #Lymphocytes 1.7 thou/uL (1.20-3.40); #Monocytes 0.8 thou/uL (0.11-0.59); %Basophils 0.9 % (0.0-1.0); %Eosinophils 1.5 % (0.0-10.0); %Lymphocytes 25.6 % (21.0-51.0); %Monocytes 12.1 % (0.0-10.0); %Neutrophils 59.9 % (42.0-75.0); Hemoglobin 16.1 g/dL (14.0-18.0); Mean Corpuscular Hemoglobin 31.7 pg (27.0-31.0); Mean Corpuscular Volume 93.4 fL (78.0-98.0); Mean Platelet Volume 6.3 fL (7.4-10.4); Platelet Count 255 thou/uL (130-400); RBC Distribution Width 12.6 % (11.5-14.5); Red Blood Cell (RBC) Count 5.07 mill/uL (4.70-6.10); White Blood Cell (WBC) Count 6.7 thou/uL (4.8-10.8)
[2020-08-11 09:37] LABS: ALT (SGPT) 43 U/L (8-55); AST (SGOT) 46 U/L (5-34); Albumin 4.3 g/dL (3.5-5.0); Alkaline Phosphatase 75 U/L (40-110); Anion Gap 19 mmol/L (10-20); BUN (Urea Nitrogen) 9 mg/dL (8.9-20.6); Bilirubin, Total 0.5 mg/dL (0.2-1.2); Calc. Creatinine Clearance 0 mL/min (70-130); Calcium 8.4 mg/dL (7.8-10.44); Carbon Dioxide 24 mmol/L (22-29); Chloride 102 mmol/L (98-107); Globulin 2.4 g/dL (2.4-3.5); Glucose 129 mg/dL (70-105); Lipase 17 U/L (8-78); Potassium 3.5 mmol/L (3.5-5.1); Protein, Total 6.7 g/dL (6.0-8.3); Sodium 141 mmol/L (136-145)
[2020-08-11] MEDS ORDERED: Aspirin Chewable 81 MG TAB ONE (09:40)
--- NOTE | 2020-08-11 10:37 | RAD ---
Chest 2 views HISTORY: Fall. Chest injury. COMPARISON: 05/21/2020. FINDINGS: Cardiac silhouette and pulmonary vasculature are unremarkable. Mediastinum is midline. Right lung remains hyperinflated with linear scarring at the right lung base similar in appearance to the prior study. No confluent airspace consolidation, pneumothorax, or pleural fluid. Internal fixation right clavicle . IMPRESSION : No acute abnormalities are demonstrated.
--- NOTE | 2020-08-11 10:52 | RAD ---
EXAM: Rib x-ray: Left RIBS HISTORY: Pain following injury falling down stairs COMPARISON: None FINDINGS: No evidence for acute fracture or dislocation. No evidence for pneumothorax or pleural effusion. No evidence for a bone lesion. No evidence for other significant acute process. IMPRESSION: Unremarkable ribs.
== END 2020-08-11 11:30 | disposition home or self-care (01) ==
LOC: ERS 08:36
DX: R07.89 Other chest pain (principal); I10 Essential (primary) hypertension; F17.210 Nicotine dependence, cigarettes, uncomplicated; Z79.899 Other long term (current) drug therapy
CPT/HCPCS: 71046; 80053; 83690; 84484; 85025; 93005; 94760

== ENCOUNTER 2020-11-10 22:37 | Inpatient (IN) | payer OTHER, SELFPAY ==
[2020-11-10] MEDS ORDERED: Propofol 1,000 MG/100 ML VIAL IV ONE (23:04)
[2020-11-10 23:09] LABS: Actual Bicarbonate (HCO3a) 21.3 mEq/L (22-28); Analyzer IN Cardio ER; Base Excess (BEa) -5.4 mEq/L (-2.0 to +3.0); CO2 Tension 45.6 mmHg (35.0-45.0); Calcium, Ionized (arterial) 1.11 mmol/L (1.12-1.30); Carboxyhemoglobin (COHb) 2.5 gm% (0.0-3.0); Hemoglobin (Hb) 17.6 g/dL (14.0-18.0); O2 Tension (PaO2), arterial 126.4 mmHg (80.0-100.0); Potassium - ABG Lab 3.71 mmol/L (3.70-5.30); pH, Arterial 7.29 (7.35-7.45)
[2020-11-10 23:16] LABS: Bacteria/HPF None Seen HPF (None Seen); Bilirubin Negative (Negative); Blood, Urine Negative (Negative); Clarity Clear (Clear); Glucose, Urine (Dipstick) Normal (Negative); Ketone, Urine Trace mg/dL (Negative); Leukocyte Negative Leu/uL (Negative); Mucous/LPF Rare LPF (<2+); Nitrite Negative (Negative); Protein, Urine (Dipstick) 30 mg/dL (Neg-Trace); RBC/HPF 0-3 HPF (0-3); Squamous Epithelial None Seen HPF (0-3); Urobilinogen Normal mg/dL (Less than 2); WBC/HPF 0-3 HPF (0-3); pH, Urine 5.5 (5.0-9.0)
[2020-11-10 23:22] LABS: Medtox Reader # READER 4
[2020-11-10 23:23] LABS: Amphetamine Not Detected (NotDetected); Barbiturates Screen Not Detected (NotDetected); Benzodiazepine Screen Not Detected (NotDetected); Cocaine Metabolite Screen Not Detected (NotDetected); Medtox Control Line Valid? VALID (VALID); Methadone Not Detected (NotDetected); Methamphetamine Not Detected (NotDetected); Opiate Screen Not Detected (NotDetected); Oxycodone Screen Not Detected (NotDetected); Phencyclidine (PCP) Not Detected (NotDetected); THC/Cannabinoid Screen Detected (NotDetected); Tricyclic Screen Not Detected (NotDetected)
[2020-11-10 23:33] LABS: Puncture Site RRA
[2020-11-10 23:37] LABS: #Lymphocytes 0.9 thou/uL (1.20-3.40); #Monocytes 0.8 thou/uL (0.11-0.59); #Neutrophils 7.7 thou/uL (1.40-6.50); %Basophils 0.5 % (0.0-1.0); %Eosinophils 0.4 % (0.0-10.0); %Lymphocytes 9.8 % (21.0-51.0); %Monocytes 8.5 % (0.0-10.0); %Neutrophils 80.9 % (42.0-75.0); Hemoglobin 17.1 g/dL (14.0-18.0); Mean Corpuscular HGB CONC 33.8 g/dL (32.0-36.0); Mean Corpuscular Hemoglobin 32.2 pg (27.0-31.0); Mean Corpuscular Volume 95.3 fL (78.0-98.0); Mean Platelet Volume 6.6 fL (7.4-10.4); Platelet Count 228 thou/uL (130-400); RBC Distribution Width 12.4 % (11.5-14.5); Red Blood Cell (RBC) Count 5.31 mill/uL (4.70-6.10); White Blood Cell (WBC) Count 9.5 thou/uL (4.8-10.8)
[2020-11-10] MEDS ORDERED: Fentanyl CADD 100 ML IV SCH (23:45)
[2020-11-11 00:06] LABS: ALT (SGPT) 72 U/L (8-55); AST (SGOT) 71 U/L (5-34); Acetaminophen Less than 6.0 mcg/mL (10.0-30.0); Albumin 4.1 g/dL (3.5-5.0); Alkaline Phosphatase 91 U/L (40-110); Anion Gap 20 mmol/L (10-20); BUN (Urea Nitrogen) 11 mg/dL (8.9-20.6); Bilirubin, Total 0.2 mg/dL (0.2-1.2); Calc. Creatinine Clearance 0 mL/min (70-130); Calcium 7.7 mg/dL (7.8-10.44); Carbon Dioxide 20 mmol/L (22-29); Chloride 105 mmol/L (98-107); Globulin 2.7 g/dL (2.4-3.5); Glucose 149 mg/dL (70-105); Potassium 3.4 mmol/L (3.5-5.1); Protein, Total 6.8 g/dL (6.0-8.3); Salicylate 9.2 mg/dL (15.0-30.0); Sodium 142 mmol/L (136-145)
[2020-11-11 00:08] LABS: Alcohol 435 mg/dL (Less than 10)
[2020-11-11] MEDS ORDERED: Thiamine HCl 200 MG/2 ML VIAL SLOW IVP SCH (00:45)
[2020-11-11] MEDS ORDERED: Folic Acid 1 MG, Multivitamins, Adult 10 ML in Dextrose 5 %-0.45 % NaCl 1,000 ML IV SCH (00:45)
[2020-11-11 01:49] LABS: SARS-CoV-2 NAA Rapid Test Not Detected (NotDetected)
[2020-11-11] MEDS ORDERED: Magnesium 2 GM/50 ML 2 GM in Premix Bag 1 BAG IVPB SCH (02:00)
[2020-11-11 02:16] LABS: #Lymphocytes 1.5 thou/uL (1.20-3.40); #Monocytes 0.9 thou/uL (0.11-0.59); #Neutrophils 9.4 thou/uL (1.40-6.50); %Basophils 0.1 % (0.0-1.0); %Eosinophils 0.2 % (0.0-10.0); %Lymphocytes 12.3 % (21.0-51.0); %Monocytes 7.5 % (0.0-10.0); %Neutrophils 79.9 % (42.0-75.0); Hemoglobin 16.3 g/dL (14.0-18.0); Mean Corpuscular HGB CONC 33.7 g/dL (32.0-36.0); Mean Corpuscular Volume 94.9 fL (78.0-98.0); Mean Platelet Volume 6.7 fL (7.4-10.4); Platelet Count 229 thou/uL (130-400); RBC Distribution Width 12.4 % (11.5-14.5); Red Blood Cell (RBC) Count 5.08 mill/uL (4.70-6.10); White Blood Cell (WBC) Count 11.8 thou/uL (4.8-10.8)
[2020-11-11 02:32] LABS: Lactic Acid 3.1 mmol/L (0.5-2.2)
[2020-11-11 02:48] LABS: ALT (SGPT) 69 U/L (8-55); AST (SGOT) 68 U/L (5-34); Albumin 3.9 g/dL (3.5-5.0); Alkaline Phosphatase 81 U/L (40-110); Anion Gap 22 mmol/L (10-20); BUN (Urea Nitrogen) 11 mg/dL (8.9-20.6); Bilirubin, Total 0.3 mg/dL (0.2-1.2); Calc. Creatinine Clearance 0 mL/min (70-130); Calcium 7.7 mg/dL (7.8-10.44); Carbon Dioxide 21 mmol/L (22-29); Chloride 105 mmol/L (98-107); Globulin 2.4 g/dL (2.4-3.5); Glucose 162 mg/dL (70-105); Magnesium 2.3 mg/dL (1.6-2.6); Phosphorus 3.6 mg/dL (2.3-4.7); Potassium 3.5 mmol/L (3.5-5.1); Protein, Total 6.3 g/dL (6.0-8.3); Sodium 144 mmol/L (136-145)
[2020-11-11] MEDS: Ampicillin/Sulbactam 3 GM in Sodium Chloride 0.9% 100 ML IVPB SCH ×4 (03:49→21:00)
[2020-11-11] MEDS: Potassium Chloride 20 MEQ in Premix Bag 1 BAG IVPB SCH ×2 (03:51→06:00)
[2020-11-11] MEDS ORDERED: Propofol 1,000 MG/100 ML VIAL IV ONE (03:58)
[2020-11-11] MEDS ORDERED: Propofol 1,000 MG/100 ML VIAL IV PRN (05:30)
[2020-11-11] MEDS ORDERED: Propofol BOLUS 1,000 MG/100 ML VIAL IV PRN (05:30)
[2020-11-11] MEDS: Folic Acid 1 MG TAB PO SCH (09:01)
[2020-11-11] MEDS: Multivitamin W/ Minerals 1 TAB PO SCH (09:01)
[2020-11-11] MEDS: Ondansetron PF 4 MG/2 ML Vial IVP PRN ×2 (11:17→16:17)
[2020-11-11] MEDS: Acetaminophen 325 MG TAB PO PRN (18:00)
[2020-11-11] MEDS: Morphine 4 MG/ML VIAL SLOW IVP PRN (21:04)
[2020-11-12] MEDS ORDERED: Diazepam 5 MG TAB PO SCH (00:45)
[2020-11-12] MEDS: Morphine 4 MG/ML VIAL SLOW IVP PRN ×6 (02:02→23:57)
[2020-11-12] MEDS: Ondansetron PF 4 MG/2 ML Vial IVP PRN ×3 (02:02→20:02)
[2020-11-12] MEDS: Ampicillin/Sulbactam 3 GM in Sodium Chloride 0.9% 100 ML IVPB SCH ×3 (02:16→16:12)
[2020-11-12 03:50] LABS: #Basophils 0.1 thou/uL (0.0-0.2); #Eosinphils 0.1 thou/uL (0.0-0.7); #Lymphocytes 2.1 thou/uL (1.20-3.40); #Monocytes 1.1 thou/uL (0.11-0.59); #Neutrophils 7.9 thou/uL (1.40-6.50); %Basophils 0.7 % (0.0-1.0); %Eosinophils 0.7 % (0.0-10.0); %Lymphocytes 18.3 % (21.0-51.0); %Neutrophils 70.4 % (42.0-75.0); Hemoglobin 13.8 g/dL (14.0-18.0); Mean Corpuscular HGB CONC 33.3 g/dL (32.0-36.0); Mean Corpuscular Hemoglobin 31.7 pg (27.0-31.0); Mean Corpuscular Volume 95.1 fL (78.0-98.0); Platelet Count 168 thou/uL (130-400); RBC Distribution Width 12.1 % (11.5-14.5); Red Blood Cell (RBC) Count 4.37 mill/uL (4.70-6.10); White Blood Cell (WBC) Count 11.2 thou/uL (4.8-10.8)
[2020-11-12 04:09] LABS: ALT (SGPT) 50 U/L (8-55); AST (SGOT) 45 U/L (5-34); Albumin 3.8 g/dL (3.5-5.0); Alkaline Phosphatase 76 U/L (40-110); Anion Gap 12 mmol/L (10-20); BUN (Urea Nitrogen) 10 mg/dL (8.9-20.6); Bilirubin, Total 1.2 mg/dL (0.2-1.2); Calc. Creatinine Clearance 176 mL/min (70-130); Calcium 8.4 mg/dL (7.8-10.44); Carbon Dioxide 30 mmol/L (22-29); Chloride 99 mmol/L (98-107); Glucose 117 mg/dL (70-105); Magnesium 1.9 mg/dL (1.6-2.6); Phosphorus 3.1 mg/dL (2.3-4.7); Potassium 3.8 mmol/L (3.5-5.1); Protein, Total 5.8 g/dL (6.0-8.3); Sodium 137 mmol/L (136-145)
[2020-11-12] MEDS: Diazepam 5 MG TAB PO PRN ×5 (04:53→23:02)
[2020-11-12] MEDS: Folic Acid 1 MG TAB PO SCH ×2 (07:21→08:28)
[2020-11-12] MEDS: Multivitamin W/ Minerals 1 TAB PO SCH (07:21)
[2020-11-12] MEDS: Enoxaparin Sodium 40 MG/0.4 ML SYRINGE SC SCH (07:21)
[2020-11-12] MEDS: Magnesium Oxide 400 MG TAB PO SCH (07:21)
[2020-11-12] MEDS: Carvedilol 6.25 MG TAB PO SCH ×2 (08:35→19:56)
[2020-11-12] MEDS: Losartan 25 MG TAB PO SCH (08:35)
[2020-11-12] MEDS: Aspirin 325 MG TAB PO SCH ×2 (08:36→19:56)
[2020-11-12] MEDS: Thiamine 100 MG TAB PO SCH (08:36)
[2020-11-12] MEDS: Hydrochlorothiazide 25 MG TAB PO SCH (08:36)
[2020-11-12] MEDS ORDERED: Thiamine 100 MG TAB PO SCH (09:00)
[2020-11-12 12:32] VITALS: BMI 32.5
[2020-11-12] MEDS: hydrALAZINE 20 MG/ML VIAL SLOW IVP PRN ×2 (13:21→18:32)
[2020-11-12] MEDS: Acetaminophen 325 MG TAB PO PRN (19:55)
[2020-11-12] MEDS: Amoxicillin/Potassium Clav 875 MG TAB PO SCH (19:56)
[2020-11-13] MEDS: Ondansetron PF 4 MG/2 ML Vial IVP PRN ×2 (05:00→15:19)
[2020-11-13] MEDS: Morphine 4 MG/ML VIAL SLOW IVP PRN ×4 (05:02→18:35)
[2020-11-13] MEDS: hydrALAZINE 20 MG/ML VIAL SLOW IVP PRN (05:14)
[2020-11-13 06:20] LABS: #Eosinphils 0.3 thou/uL (0.0-0.7); #Lymphocytes 1.4 thou/uL (1.20-3.40); #Monocytes 1.1 thou/uL (0.11-0.59); #Neutrophils 9.1 thou/uL (1.40-6.50); %Basophils 0.3 % (0.0-1.0); %Eosinophils 2.7 % (0.0-10.0); %Monocytes 8.8 % (0.0-10.0); %Neutrophils 76.2 % (42.0-75.0); Hemoglobin 16.4 g/dL (14.0-18.0); Mean Corpuscular HGB CONC 34.3 g/dL (32.0-36.0); Mean Corpuscular Hemoglobin 32.5 pg (27.0-31.0); Mean Platelet Volume 7.3 fL (7.4-10.4); Platelet Count 168 thou/uL (130-400); RBC Distribution Width 11.9 % (11.5-14.5); Red Blood Cell (RBC) Count 5.05 mill/uL (4.70-6.10); White Blood Cell (WBC) Count 11.9 thou/uL (4.8-10.8)
[2020-11-13] MEDS: Magnesium Oxide 400 MG TAB PO SCH (07:47)
[2020-11-13] MEDS: Folic Acid 1 MG TAB PO SCH (07:47)
[2020-11-13] MEDS: Amoxicillin/Potassium Clav 875 MG TAB PO SCH ×2 (07:48→20:45)
[2020-11-13] MEDS: Hydrochlorothiazide 25 MG TAB PO SCH (07:49)
[2020-11-13] MEDS: Losartan 25 MG TAB PO SCH (07:49)
[2020-11-13] MEDS: Multivitamin W/ Minerals 1 TAB PO SCH (07:49)
[2020-11-13] MEDS: Thiamine 100 MG TAB PO SCH (07:50)
[2020-11-13] MEDS: Enoxaparin Sodium 40 MG/0.4 ML SYRINGE SC SCH (07:50)
[2020-11-13] MEDS: Carvedilol 6.25 MG TAB PO SCH ×2 (07:50→20:45)
[2020-11-13] MEDS: Diazepam 5 MG TAB PO PRN ×2 (08:02→20:49)
[2020-11-13] MEDS: Aspirin 325 MG TAB PO SCH (08:02)
[2020-11-13] MEDS ORDERED: Furosemide 40 MG/4 ML VIAL SLOW IVP SCH (09:30)
[2020-11-13 12:53] LABS: Albumin 4.1 g/dL (3.5-5.0)
[2020-11-13 12:54] LABS: Chloride 97 mmol/L (98-107); Potassium 3.9 mmol/L (3.5-5.1); Sodium 135 mmol/L (136-145)
[2020-11-13 12:55] LABS: Calcium 9.3 mg/dL (7.8-10.44)
[2020-11-13 12:56] LABS: Globulin 3.1 g/dL (2.4-3.5); Glucose 109 mg/dL (70-105); Protein, Total 7.2 g/dL (6.0-8.3)
[2020-11-13 12:57] LABS: Anion Gap 19 mmol/L (10-20); Carbon Dioxide 23 mmol/L (22-29)
[2020-11-13 12:59] LABS: Alkaline Phosphatase 87 U/L (40-110); Calc. Creatinine Clearance 188 mL/min (70-130)
[2020-11-13 13:00] LABS: BUN (Urea Nitrogen) 6 mg/dL (8.9-20.6)
[2020-11-13 13:01] LABS: AST (SGOT) 37 U/L (5-34); Magnesium 2.3 mg/dL (1.6-2.6)
[2020-11-13 13:02] LABS: ALT (SGPT) 43 U/L (8-55)
[2020-11-13 13:04] LABS: Phosphorus 3.8 mg/dL (2.3-4.7)
[2020-11-14] MEDS: Morphine 4 MG/ML VIAL SLOW IVP PRN ×2 (00:11→05:18)
[2020-11-14] MEDS: Ondansetron PF 4 MG/2 ML Vial IVP PRN (00:20)
[2020-11-14] MEDS: Diazepam 5 MG TAB PO PRN ×2 (06:24→15:57)
[2020-11-14] MEDS: Acetaminophen 325 MG TAB PO PRN (06:24)
[2020-11-14] MEDS: Magnesium Oxide 400 MG TAB PO SCH (09:09)
[2020-11-14] MEDS: Carvedilol 6.25 MG TAB PO SCH (09:09)
[2020-11-14] MEDS: Losartan 25 MG TAB PO SCH (09:09)
[2020-11-14] MEDS: Amoxicillin/Potassium Clav 875 MG TAB PO SCH (09:10)
[2020-11-14] MEDS: Folic Acid 1 MG TAB PO SCH (09:10)
[2020-11-14] MEDS: Thiamine 100 MG TAB PO SCH (09:10)
[2020-11-14] MEDS: Multivitamin W/ Minerals 1 TAB PO SCH (09:11)
[2020-11-14] MEDS: Enoxaparin Sodium 40 MG/0.4 ML SYRINGE SC SCH (09:11)
[2020-11-14] MEDS: Aspirin 325 MG TAB PO SCH (09:17)
[2020-11-14 12:45] VITALS: TEMP 98.4
[2020-11-14 15:39] VITALS: BP 149/99
== END 2020-11-14 16:03 | disposition home or self-care (01) | DRG 917 ==
LOC: ERS 22:37 → ERHOLD 11-11 01:01 → CCU 11-11 02:51 → T4-B 11-12 10:43
PROVIDERS: ADMIT Internal Medicine; ATTEND Internal Medicine
PROC: 0BH17EZ Insertion of Endotracheal Airway into Trachea, Via Natural or Artificial Opening (ICD-10-PCS; principal; 2020-11-11)
PROC: 5A1935Z Respiratory Ventilation, Less than 24 Consecutive Hours (ICD-10-PCS; 2020-11-11)
DX: T51.91XA Toxic effect of unspecified alcohol, accidental (unintentional), initial encounter (principal); G92 Toxic encephalopathy; J96.01 Acute respiratory failure with hypoxia; J96.02 Acute respiratory failure with hypercapnia; J69.0 Pneumonitis due to inhalation of food and vomit; E87.2 Acidosis; T40.7X1A Poisoning by cannabis (derivatives), accidental (unintentional), initial encounter; F10.129 Alcohol abuse with intoxication, unspecified; I10 Essential (primary) hypertension; F12.10 Cannabis abuse, uncomplicated; Z20.822 Contact with and (suspected) exposure to COVID-19; Y90.8 Blood alcohol level of 240 mg/100 ml or more; F17.210 Nicotine dependence, cigarettes, uncomplicated; Z79.82 Long term (current) use of aspirin; Z71.6 Tobacco abuse counseling; Z88.8 Allergy status to other drugs, medicaments and biological substances; Z71.41 Alcohol abuse counseling and surveillance of alcoholic; Z71.51 Drug abuse counseling and surveillance of drug abuser
CPT/HCPCS: 36415; 36416; 36600; 51702; 70450; 71045; 72125; 80053; 80306; 80307; 81003; 81015; 82010; 82805; 83605; 83735; 83880; 84100; 84484; 85025; 90471; 90732; 93005; 94002; 94640; 96365; 96366; 96368; G0009; J0295; J0360; J1650; J1940; J2270; J2405; J2704; J3010; J3411; J3475; J3480; J3490; J7042; J7620; U0002

== ENCOUNTER 2021-10-10 08:57 | Emergency (ER) | payer SELFPAY ==
[2021-10-10] MEDS ORDERED: Ketorolac Tromethamine 30 MG/ML VIAL ONE (09:29)
[2021-10-10] MEDS ORDERED: Acetaminophen 500 MG TAB ONE (09:29)
[2021-10-10] MEDS ORDERED: Ibuprofen 200 MG TAB ONE (09:30)
[2021-10-10 09:40] LABS: #Eosinphils 0.1 thou/uL (0.0-0.7); #Lymphocytes 0.6 thou/uL (1.20-3.40); #Monocytes 0.6 thou/uL (0.11-0.59); #Neutrophils 3.8 thou/uL (1.40-6.50); %Basophils 0.2 % (0.0-1.0); %Eosinophils 1.5 % (0.0-10.0); %Lymphocytes 11.1 % (21.0-51.0); %Monocytes 11.5 % (0.0-10.0); %Neutrophils 75.7 % (42.0-75.0); Hemoglobin 15.4 g/dL (14.0-18.0); Mean Corpuscular HGB CONC 33.6 g/dL (32.0-36.0); Mean Corpuscular Hemoglobin 33.8 pg (27.0-31.0); Mean Platelet Volume 6.8 fL (7.4-10.4); Platelet Count 152 thou/uL (130-400); RBC Distribution Width 11.6 % (11.5-14.5); Red Blood Cell (RBC) Count 4.56 mill/uL (4.70-6.10)
[2021-10-10 10:02] LABS: ALT (SGPT) 135 U/L (8-55); AST (SGOT) 189 U/L (5-34); Albumin 4.1 g/dL (3.5-5.0); Alkaline Phosphatase 92 U/L (40-110); Anion Gap 14 mmol/L (10-20); BUN (Urea Nitrogen) 8 mg/dL (8.9-20.6); Bilirubin, Total 0.4 mg/dL (0.2-1.2); Calc. Creatinine Clearance 0 mL/min (70-130); Calcium 8.2 mg/dL (7.8-10.44); Carbon Dioxide 26 mmol/L (22-29); Chloride 103 mmol/L (98-107); Globulin 2.3 g/dL (2.4-3.5); Glucose 172 mg/dL (70-105); Potassium 3.6 mmol/L (3.5-5.1); Protein, Total 6.4 g/dL (6.0-8.3); Sodium 139 mmol/L (136-145)
[2021-10-10] MEDS ORDERED: Ondansetron PF 4 MG/2 ML Vial ONE (11:06)
== END 2021-10-10 11:38 | disposition home or self-care (01) ==
LOC: ERS 08:57
DX: J10.1 Influenza due to other identified influenza virus with other respiratory manifestations (principal); I10 Essential (primary) hypertension; F17.210 Nicotine dependence, cigarettes, uncomplicated; Z79.899 Other long term (current) drug therapy
CPT/HCPCS: 71045; 80053; 85025; 87804; 93005; 96374; J1885; J2405

== ENCOUNTER 2022-03-09 04:17 | Inpatient (IN) | payer SELFPAY ==
[2022-03-09] MEDS ORDERED: Acetaminophen 500 MG TAB ONE (04:42)
[2022-03-09] MEDS ORDERED: Ondansetron PF 4 MG/2 ML Vial ONE (04:42)
[2022-03-09 05:14] LABS: #Eosinphils 0.1 thou/uL (0.0-0.7); #Lymphocytes 1.6 thou/uL (1.20-3.40); #Monocytes 0.5 thou/uL (0.11-0.59); #Neutrophils 3.1 thou/uL (1.40-6.50); %Basophils 0.8 % (0.0-1.0); %Eosinophils 1.6 % (0.0-10.0); %Lymphocytes 30.7 % (21.0-51.0); %Monocytes 9.1 % (0.0-10.0); %Neutrophils 57.9 % (42.0-75.0); Hemoglobin 15.9 g/dL (14.0-18.0); Mean Corpuscular HGB CONC 35.7 g/dL (32.0-36.0); Mean Corpuscular Hemoglobin 34.6 pg (27.0-31.0); Mean Corpuscular Volume 97.1 fL (78.0-98.0); Mean Platelet Volume 6.7 fL (7.4-10.4); Platelet Count 183 thou/uL (130-400); RBC Distribution Width 11.6 % (11.5-14.5); Red Blood Cell (RBC) Count 4.59 mill/uL (4.70-6.10); White Blood Cell (WBC) Count 5.4 thou/uL (4.8-10.8)
[2022-03-09 05:33] LABS: ALT (SGPT) 138 U/L (8-55); AST (SGOT) 291 U/L (5-34); Albumin 4.3 g/dL (3.5-5.0); Alkaline Phosphatase 107 U/L (40-110); Anion Gap 22 mmol/L (10-20); BUN (Urea Nitrogen) 10 mg/dL (8.9-20.6); Bilirubin, Total 0.6 mg/dL (0.2-1.2); Calc. Creatinine Clearance 0 mL/min (70-130); Calcium 8.7 mg/dL (7.8-10.44); Carbon Dioxide 25 mmol/L (22-29); Chloride 99 mmol/L (98-107); Estimated GFR 93; Globulin 2.9 g/dL (2.4-3.5); Glucose 245 mg/dL (70-105); Protein, Total 7.2 g/dL (6.0-8.3); Sodium 143 mmol/L (136-145)
[2022-03-09] MEDS ORDERED: Potassium Chloride 20 MEQ TAB ONE (08:22)
[2022-03-09] MEDS ORDERED: cefTRIAXone\\ROCEPHIN 2 GM VIAL ONE (09:09)
[2022-03-09] MEDS ORDERED: Azithromycin 500 MG VIAL ONE (09:44)
[2022-03-09 09:50] LABS: SARS-CoV-2 NAA Rapid Test Not Detected (NotDetected)
[2022-03-09 09:59] LABS: CKMB 3.6 ng/mL (0-6.6)
[2022-03-09] MEDS ORDERED: Lidocaine Viscous Sol 2% 15 ml UD Cup ONE (10:03)
[2022-03-09] MEDS ORDERED: Mag-Al 1200 mg/1200 mg/30 ML UDCUP ONE (10:03)
[2022-03-09 11:59] LABS: Lactic Acid 5.6 mmol/L (0.5-2.2)
[2022-03-09 12:07] LABS: Troponin I 0.061 ng/mL (< 0.028)
[2022-03-09 12:12] LABS: Lactic Acid 5.7 mmol/L (0.5-2.2)
[2022-03-09 14:14] VITALS: BMI 33.7
[2022-03-09] MEDS ORDERED: Ondansetron ODT 4 MG TAB SL PRN (14:30)
[2022-03-09] MEDS ORDERED: Ondansetron PF 4 MG/2 ML Vial IVP PRN ×2 (14:30→20:27)
[2022-03-09] MEDS ORDERED: Acetaminophen 325 MG TAB PO PRN (14:30)
[2022-03-09] MEDS: Sodium Chloride 0.9% 1,000 ML IV SCH ×2 (14:59→22:58)
[2022-03-09] MEDS ORDERED: hydrALAZINE 20 MG/ML VIAL SLOW IVP PRN (15:06)
[2022-03-09 15:42] LABS: Troponin I 0.046 ng/mL (< 0.028)
[2022-03-09] MEDS ORDERED: Lorazepam 1 MG TAB PO PRN (16:02)
[2022-03-09] MEDS ORDERED: Iopamidol 370 76% 100 ML VIAL ONE (16:07)
[2022-03-09] MEDS ORDERED: Albuterol Sulfate 2.5 mg/3 ml Neb NEB PRN (16:11)
[2022-03-09] MEDS ORDERED: Thiamine 100 MG TAB PO SCH (16:15)
[2022-03-09] MEDS: Nicotine 14 MG PATCH TD SCH (16:37)
[2022-03-09] MEDS ORDERED: Ondansetron ODT 4 MG TAB PO PRN (17:30)
[2022-03-09] MEDS ORDERED: Lorazepam 2 MG/ML VIAL IM PRN (17:30)
[2022-03-09] MEDS ORDERED: Electrolyte Replacement Protocol 1 EACH FS PRN (17:30)
[2022-03-09] MEDS ORDERED: Electrolyte Replacement Protocol FS PRN (17:45)
[2022-03-09] MEDS: Lorazepam 1 MG TAB PO SCH ×2 (18:11→23:50)
[2022-03-09] MEDS: Carvedilol 6.25 MG TAB PO SCH (20:55)
[2022-03-09] MEDS: Spironolactone 25 MG TAB PO SCH (20:55)
[2022-03-09] MEDS: Lorazepam 1 MG TAB PO PRN (20:55)
[2022-03-10] MEDS: Promethazine HCl 12.5 MG in Sodium Chloride 0.9% 50 ML IVPB PRN ×3 (01:14→20:10)
[2022-03-10] MEDS: traMADol HCl 50 MG TAB PO PRN ×2 (03:47→20:16)
[2022-03-10 05:48] LABS: #Eosinphils 0.2 thou/uL (0.0-0.7); #Lymphocytes 1.1 thou/uL (1.20-3.40); #Monocytes 0.5 thou/uL (0.11-0.59); #Neutrophils 2.9 thou/uL (1.40-6.50); %Basophils 0.2 % (0.0-1.0); %Eosinophils 3.4 % (0.0-10.0); %Lymphocytes 23.1 % (21.0-51.0); %Monocytes 11.2 % (0.0-10.0); %Neutrophils 62.1 % (42.0-75.0); Anion Gap 16 mmol/L (10-20); BUN (Urea Nitrogen) 4 mg/dL (8.9-20.6); Calc. Creatinine Clearance 221 mL/min (70-130); Calcium 8.1 mg/dL (7.8-10.44); Carbon Dioxide 25 mmol/L (22-29); Chloride 99 mmol/L (98-107); Estimated GFR 117; Glucose 171 mg/dL (70-105); Hemoglobin 13.2 g/dL (14.0-18.0); Mean Corpuscular HGB CONC 34.5 g/dL (32.0-36.0); Mean Corpuscular Hemoglobin 33.9 pg (27.0-31.0); Mean Corpuscular Volume 98.4 fL (78.0-98.0); Mean Platelet Volume 6.9 fL (7.4-10.4); Platelet Count 116 thou/uL (130-400); Platelet Morphology Comment Appears Decreased; Potassium 3.1 mmol/L (3.5-5.1); RBC Distribution Width 11.3 % (11.5-14.5); Red Blood Cell (RBC) Count 3.89 mill/uL (4.70-6.10); Sodium 137 mmol/L (136-145); White Blood Cell (WBC) Count 4.7 thou/uL (4.8-10.8)
[2022-03-10] MEDS: Lorazepam 1 MG TAB PO SCH ×5 (06:06→23:49)
[2022-03-10] MEDS ORDERED: HumaLOG 300 UNITS/3 ML VIAL SC PRN (07:34)
[2022-03-10] MEDS ORDERED: Dextrose 50% Abboject 50 ML SYRINGE SLOW IVP PRN (07:34)
[2022-03-10] MEDS ORDERED: Dextrose 5% in Water 1,000 ML IV PRN (07:34)
[2022-03-10] MEDS ORDERED: Potassium Chloride 20 MEQ TAB PO SCH ×3 (07:45→22:45)
[2022-03-10 08:12] LABS: Hemoglobin A1c 7.2 % (4.0-6.0)
[2022-03-10] MEDS: Thiamine 100 MG TAB PO SCH (09:21)
[2022-03-10] MEDS: Spironolactone 25 MG TAB PO SCH ×2 (09:21→20:18)
[2022-03-10] MEDS: Multivit, Therapeutic 1 TAB PO SCH (09:21)
[2022-03-10] MEDS: Folic Acid 1 MG TAB PO SCH (09:24)
[2022-03-10] MEDS: Lorazepam 1 MG TAB PO PRN (09:30)
[2022-03-10 09:47] LABS: Lactic Acid 2.7 mmol/L (0.5-2.2)
[2022-03-10] MEDS: cefTRIAXone\\ROCEPHIN 1 GM in Sodium Chloride 0.9% 100 ML IVPB SCH (10:11)
[2022-03-10] MEDS: Carvedilol 6.25 MG TAB PO SCH ×2 (11:04→20:18)
[2022-03-10] MEDS: Amlodipine 10 MG TAB PO SCH (11:37)
[2022-03-10] MEDS: Losartan 25 MG TAB PO SCH (11:38)
[2022-03-10] MEDS: Azithromycin 500 MG in Sodium Chloride 0.9% 250 ML 250 ML IVPB SCH (11:39)
[2022-03-10 14:25] LABS: Potassium 3.5 mmol/L (3.5-5.1)
[2022-03-10] MEDS ORDERED: Lorazepam 1 MG TAB PO PRN ×2 (14:48→18:00)
[2022-03-10] MEDS: Nicotine 14 MG PATCH TD SCH (15:05)
[2022-03-10 18:25] LABS: Hemoglobin 14.8 g/dL (14.0-18.0); Mean Corpuscular HGB CONC 34.2 g/dL (32.0-36.0); Mean Corpuscular Hemoglobin 33.4 pg (27.0-31.0); Mean Corpuscular Volume 97.7 fL (78.0-98.0); Mean Platelet Volume 7.4 fL (7.4-10.4); Platelet Count 111 thou/uL (130-400); RBC Distribution Width 11.3 % (11.5-14.5); Red Blood Cell (RBC) Count 4.43 mill/uL (4.70-6.10)
[2022-03-10] MEDS ORDERED: Acetaminophen 325 MG TAB PO SCH (18:45)
[2022-03-11] MEDS: Lorazepam 1 MG TAB PO SCH ×2 (05:37→12:33)
[2022-03-11] MEDS: Acetaminophen 325 MG TAB PO PRN ×2 (05:42→17:50)
[2022-03-11 06:20] LABS: Hemoglobin 15.5 g/dL (14.0-18.0); Mean Corpuscular HGB CONC 33.6 g/dL (32.0-36.0); Mean Corpuscular Hemoglobin 33.3 pg (27.0-31.0); Mean Corpuscular Volume 99.1 fL (78.0-98.0); Mean Platelet Volume 7.1 fL (7.4-10.4); Platelet Count 112 thou/uL (130-400); RBC Distribution Width 11.4 % (11.5-14.5); Red Blood Cell (RBC) Count 4.66 mill/uL (4.70-6.10); White Blood Cell (WBC) Count 5.2 thou/uL (4.8-10.8)
[2022-03-11 06:39] LABS: Anion Gap 16 mmol/L (10-20); BUN (Urea Nitrogen) 4 mg/dL (8.9-20.6); Calc. Creatinine Clearance 204 mL/min (70-130); Calcium 9.2 mg/dL (7.8-10.44); Carbon Dioxide 32 mmol/L (22-29); Chloride 95 mmol/L (98-107); Estimated GFR 114; Glucose 146 mg/dL (70-105); Potassium 3.9 mmol/L (3.5-5.1); Sodium 139 mmol/L (136-145)
[2022-03-11 09:17] LABS: Prothrombin Time 13.2 sec (12.0-14.7)
[2022-03-11] MEDS: cefTRIAXone\\ROCEPHIN 1 GM in Sodium Chloride 0.9% 100 ML IVPB SCH (09:38)
[2022-03-11] MEDS: Azithromycin 500 MG in Sodium Chloride 0.9% 250 ML 250 ML IVPB SCH (09:39)
[2022-03-11] MEDS: Amlodipine 10 MG TAB PO SCH (09:40)
[2022-03-11] MEDS: Folic Acid 1 MG TAB PO SCH (09:40)
[2022-03-11] MEDS: Thiamine 100 MG TAB PO SCH (09:40)
[2022-03-11] MEDS: Losartan 25 MG TAB PO SCH (09:40)
[2022-03-11] MEDS: Spironolactone 25 MG TAB PO SCH ×2 (09:40→21:17)
[2022-03-11] MEDS: Multivit, Therapeutic 1 TAB PO SCH (09:40)
[2022-03-11] MEDS: Carvedilol 6.25 MG TAB PO SCH ×2 (09:40→21:17)
[2022-03-11] MEDS: Promethazine HCl 12.5 MG in Sodium Chloride 0.9% 50 ML IVPB PRN (10:53)
[2022-03-11] MEDS: Nicotine 14 MG PATCH TD SCH (16:37)
[2022-03-11] MEDS: Ampicillin/Sulbactam 3 GM in Sodium Chloride 0.9% 100 ML IVPB SCH (17:49)
[2022-03-11] MEDS: Lorazepam 0.5 MG TAB PO SCH (17:50)
[2022-03-11] MEDS ORDERED: Lorazepam 1 MG TAB PO PRN (18:00)
[2022-03-12] MEDS: Lorazepam 0.5 MG TAB PO SCH ×3 (00:59→11:30)
[2022-03-12] MEDS: Ampicillin/Sulbactam 3 GM in Sodium Chloride 0.9% 100 ML IVPB SCH ×3 (01:02→11:32)
[2022-03-12] MEDS: traMADol HCl 50 MG TAB PO PRN (01:08)
[2022-03-12] MEDS: Acetaminophen 325 MG TAB PO PRN ×2 (02:36→10:26)
[2022-03-12] MEDS: Losartan 25 MG TAB PO SCH (09:07)
[2022-03-12] MEDS: Carvedilol 6.25 MG TAB PO SCH (09:07)
[2022-03-12] MEDS: Folic Acid 1 MG TAB PO SCH (09:08)
[2022-03-12] MEDS: Spironolactone 25 MG TAB PO SCH (09:08)
[2022-03-12] MEDS: Amlodipine 10 MG TAB PO SCH (09:08)
[2022-03-12] MEDS: Multivit, Therapeutic 1 TAB PO SCH (09:09)
[2022-03-12] MEDS: Thiamine 100 MG TAB PO SCH (09:09)
[2022-03-12 09:33] LABS: ALT (SGPT) 86 U/L (8-55); AST (SGOT) 84 U/L (5-34); Albumin 3.9 g/dL (3.5-5.0); Alkaline Phosphatase 96 U/L (40-110); Anion Gap 12 mmol/L (10-20); BUN (Urea Nitrogen) 6 mg/dL (8.9-20.6); Bilirubin, Total 1.8 mg/dL (0.2-1.2); Calc. Creatinine Clearance 219 mL/min (70-130); Calcium 8.8 mg/dL (7.8-10.44); Carbon Dioxide 30 mmol/L (22-29); Chloride 99 mmol/L (98-107); Estimated GFR 117; Globulin 2.6 g/dL (2.4-3.5); Glucose 149 mg/dL (70-105); Protein, Total 6.5 g/dL (6.0-8.3); Sodium 138 mmol/L (136-145)
[2022-03-12 09:44] LABS: #Eosinphils 0.2 thou/uL (0.0-0.7); #Lymphocytes 1.1 thou/uL (1.20-3.40); #Monocytes 0.6 thou/uL (0.11-0.59); #Neutrophils 4.2 thou/uL (1.40-6.50); %Basophils 0.7 % (0.0-1.0); %Eosinophils 3.7 % (0.0-10.0); %Monocytes 10.2 % (0.0-10.0); %Neutrophils 67.4 % (42.0-75.0); Mean Corpuscular HGB CONC 33.6 g/dL (32.0-36.0); Mean Corpuscular Hemoglobin 33.1 pg (27.0-31.0); Mean Corpuscular Volume 98.5 fL (78.0-98.0); Mean Platelet Volume 7.3 fL (7.4-10.4); Platelet Count 111 thou/uL (130-400); RBC Distribution Width 11.4 % (11.5-14.5); Red Blood Cell (RBC) Count 4.53 mill/uL (4.70-6.10); White Blood Cell (WBC) Count 6.3 thou/uL (4.8-10.8)
[2022-03-12] MEDS: Promethazine HCl 12.5 MG in Sodium Chloride 0.9% 50 ML IVPB PRN (10:27)
[2022-03-12] MEDS ORDERED: Potassium Chloride 20 MEQ TAB PO SCH (10:30)
[2022-03-12] MEDS ORDERED: Magnesium 2 GM/50 ML(in water) 2 GM in Premix Bag 1 BAG IVPB SCH (11:00)
[2022-03-12] MEDS: Nicotine 14 MG PATCH TD SCH (16:18)
[2022-03-12 17:12] VITALS: TEMP 97.7
[2022-03-12] MEDS ORDERED: Lorazepam 0.5 MG TAB PO PRN (18:00)
[2022-03-12 19:21] VITALS: BP 148/106
== END 2022-03-12 17:33 | disposition home or self-care (01) | DRG 871 ==
LOC: ERS 04:17 → 2SW 11:08 → T4-A 03-10 16:13
PROVIDERS: ADMIT Internal Medicine; ATTEND Internal Medicine
DX: A41.9 Sepsis, unspecified organism (principal); J18.9 Pneumonia, unspecified organism; J69.0 Pneumonitis due to inhalation of food and vomit; E87.2 Acidosis; R65.20 Severe sepsis without septic shock; F10.20 Alcohol dependence, uncomplicated; K70.10 Alcoholic hepatitis without ascites; Z88.8 Allergy status to other drugs, medicaments and biological substances; Z79.51 Long term (current) use of inhaled steroids; Z79.899 Other long term (current) drug therapy; Z98.890 Other specified postprocedural states
CPT/HCPCS: 36415; 36416; 71045; 71275; 80048; 80053; 82553; 83036; 83605; 84484; 85025; 85027; 85610; 87040; 87081; 87430; 87804; 93005; 94640; 96361; 96365; 96375; J0295; J0456; J0696; J2405; J2550; J3475; J3490; J7050; J7611; J7620; Q9967; U0002

== ENCOUNTER 2022-04-23 04:14 | Inpatient (IN) | payer SELFPAY ==
[2022-04-23] MEDS ORDERED: Diazepam 10 MG/2 ML SYRINGE ONE ×2 (04:40→06:15)
[2022-04-23] MEDS ORDERED: Ondansetron PF 4 MG/2 ML Vial ONE ×2 (04:40→06:45)
[2022-04-23 05:11] LABS: #Eosinphils 0.1 thou/uL (0.0-0.7); #Lymphocytes 1.4 thou/uL (1.20-3.40); #Monocytes 0.9 thou/uL (0.11-0.59); #Neutrophils 7.1 thou/uL (1.40-6.50); %Basophils 0.4 % (0.0-1.0); %Eosinophils 1.3 % (0.0-10.0); %Lymphocytes 14.6 % (21.0-51.0); %Monocytes 9.3 % (0.0-10.0); %Neutrophils 74.5 % (42.0-75.0); Hemoglobin 16.6 g/dL (14.0-18.0); Mean Corpuscular HGB CONC 35.2 g/dL (32.0-36.0); Mean Corpuscular Hemoglobin 33.9 pg (27.0-31.0); Mean Corpuscular Volume 96.3 fL (78.0-98.0); Mean Platelet Volume 7.8 fL (7.4-10.4); Platelet Count 167 thou/uL (130-400); RBC Distribution Width 11.5 % (11.5-14.5); Red Blood Cell (RBC) Count 4.89 mill/uL (4.70-6.10); White Blood Cell (WBC) Count 9.6 thou/uL (4.8-10.8)
[2022-04-23 05:32] LABS: Acetaminophen Less than 10.0 mcg/mL (10.0-30.0); Alcohol 28 mg/dL (Less than 10); Salicylate Less than 8.0 mg/dL (15.0-30.0)
[2022-04-23 05:35] LABS: ALT (SGPT) 108 U/L (8-55); AST (SGOT) 162 U/L (5-34); Albumin 4.7 g/dL (3.5-5.0); Alkaline Phosphatase 119 U/L (40-110); Anion Gap 26 mmol/L (10-20); BUN (Urea Nitrogen) 14 mg/dL (8.9-20.6); Bilirubin, Total 2.3 mg/dL (0.2-1.2); Calc. Creatinine Clearance 0 mL/min (70-130); Calcium 9.2 mg/dL (7.8-10.44); Carbon Dioxide 16 mmol/L (22-29); Chloride 94 mmol/L (98-107); Estimated GFR 94; Globulin 2.7 g/dL (2.4-3.5); Glucose 274 mg/dL (70-105); Lipase 30 U/L (8-78); Potassium 3.7 mmol/L (3.5-5.1); Protein, Total 7.4 g/dL (6.0-8.3); Sodium 132 mmol/L (136-145)
[2022-04-23] MEDS ORDERED: Morphine 4 MG/ML VIAL ONE (07:10)
[2022-04-23 08:18] LABS: Lactic Acid 2.6 mmol/L (0.5-2.2)
[2022-04-23] MEDS ORDERED: Lorazepam 2 MG/ML VIAL IM PRN (08:33)
[2022-04-23 08:39] LABS: Amphetamine Not Detected (NotDetected); Barbiturates Screen Not Detected (NotDetected); Benzodiazepine Screen Detected (NotDetected); Cocaine Metabolite Screen Not Detected (NotDetected); Methadone Not Detected (NotDetected); Methamphetamine Not Detected (NotDetected); Opiate Screen Detected (NotDetected); Oxycodone Screen Not Detected (NotDetected); Phencyclidine (PCP) Not Detected (NotDetected); THC/Cannabinoid Screen Detected (NotDetected); Tricyclic Screen Not Detected (NotDetected)
[2022-04-23] MEDS ORDERED: Senokot S 8.6-50 MG TAB PO PRN (08:41)
[2022-04-23] MEDS ORDERED: Acetaminophen 650 MG Suppository PR PRN (08:41)
[2022-04-23] MEDS ORDERED: Electrolyte Replacement Protocol 1 EACH FS SCH (08:45)
[2022-04-23] MEDS ORDERED: Iopamidol 370 76% 100 ML VIAL ONE (08:55)
[2022-04-23 09:02] LABS: Bacteria/HPF None Seen HPF (None Seen); Bilirubin 1+ (Negative); Blood, Urine Trace (Negative); Clarity Clear (Clear); Glucose, Urine (Dipstick) 150 mg/dL (Negative); Ketone, Urine 100 mg/dL (Negative); Leukocyte Negative Leu/uL (Negative); Nitrite Negative (Negative); Protein, Urine (Dipstick) 100 mg/dL (Neg-Trace); RBC/HPF 0-3 HPF (0-3); Squamous Epithelial 0-3 HPF (0-3); Urobilinogen 3 mg/dL (Less than 2); WBC/HPF 0-3 HPF (0-3); pH, Urine 6.5 (5.0-9.0)
[2022-04-23 09:03] LABS: Specific Gravity, Urine Greater than 1.060 (1.002-1.036)
[2022-04-23 09:41] LABS: SARS-CoV-2 NAA Rapid Test Not Detected (NotDetected)
[2022-04-23 09:49] LABS: Hemoglobin A1c 8.1 % (4.0-6.0)
[2022-04-23 10:00] LABS: Magnesium 1.4 mg/dL (1.6-2.6); Phosphorus 3.4 mg/dL (2.3-4.7)
[2022-04-23] MEDS ORDERED: HumaLOG 300 UNITS/3 ML VIAL SC PRN ×2 (10:12)
[2022-04-23] MEDS ORDERED: Dextrose 5% in Water 1,000 ML IV PRN (10:12)
[2022-04-23] MEDS ORDERED: Dextrose 50% Abboject 50 ML SYRINGE SLOW IVP PRN (10:12)
[2022-04-23] MEDS ORDERED: Albuterol 200 PUFF (6.7GM INHALER) INH PRN (10:14)
[2022-04-23] MEDS ORDERED: Lorazepam 1 MG TAB ONE ×3 (10:40→16:14)
[2022-04-23] MEDS ORDERED: Magnesium Sulfate 4 GM in Sodium Chloride 0.9% 250 ML 250 ML IVPB ONE (10:46)
[2022-04-23] MEDS ORDERED: Magnesium Sulfate In Water 4 GM in Premix Bag 1 BAG IVPB SCH (11:00)
[2022-04-23] MEDS: Lorazepam 1 MG TAB PO SCH ×3 (11:08→20:23)
[2022-04-23] MEDS ORDERED: Folic Acid 1 MG TAB ONE (12:18)
[2022-04-23] MEDS ORDERED: Enoxaparin Sodium 40 MG/0.4 ML SYRINGE ONE (12:18)
[2022-04-23] MEDS ORDERED: Nicotine 14 MG PATCH ONE (12:19)
[2022-04-23] MEDS ORDERED: Pantoprazole 40 MG VIAL ONE (12:19)
[2022-04-23] MEDS: Sodium Chloride 0.9% 1,000 ML IV SCH ×2 (12:47→18:39)
[2022-04-23] MEDS: Multivit, Therapeutic 1 TAB PO SCH (12:47)
[2022-04-23] MEDS: Folic Acid 1 MG TAB PO SCH (12:47)
[2022-04-23] MEDS: Enoxaparin Sodium 40 MG/0.4 ML SYRINGE SC SCH (12:47)
[2022-04-23] MEDS: Thiamine HCl 200 MG/2 ML VIAL SLOW IVP SCH (12:48)
[2022-04-23] MEDS: Nicotine 14 MG PATCH TD SCH (12:48)
[2022-04-23] MEDS: Pantoprazole 40 MG VIAL IVP SCH ×2 (12:48→20:23)
[2022-04-23 13:21] LABS: Troponin I 0.018 ng/mL (< 0.028)
[2022-04-23] MEDS ORDERED: Ondansetron ODT 4 MG TAB ONE (15:03)
[2022-04-23] MEDS: Ondansetron ODT 4 MG TAB PO PRN ×2 (15:07→20:29)
[2022-04-23] MEDS ORDERED: Morphine 2 MG/ML VIAL ONE (15:08)
[2022-04-23] MEDS: Morphine 2 MG/ML VIAL SLOW IVP PRN ×2 (15:37→20:23)
[2022-04-23 16:12] LABS: Magnesium 2.6 mg/dL (1.6-2.6)
[2022-04-23 18:27] VITALS: BMI 33.8
[2022-04-23] MEDS: Carvedilol 6.25 MG TAB PO SCH (20:23)
[2022-04-23] MEDS: Spironolactone 25 MG TAB PO SCH (20:23)
[2022-04-24] MEDS: Morphine 2 MG/ML VIAL SLOW IVP PRN ×7 (00:01→23:42)
[2022-04-24] MEDS: Sodium Chloride 0.9% 1,000 ML IV SCH ×3 (00:02→15:19)
[2022-04-24] MEDS: Ondansetron PF 4 MG/2 ML Vial IVP PRN ×3 (00:05→15:26)
[2022-04-24] MEDS: Lorazepam 1 MG TAB PO SCH ×4 (02:11→20:29)
[2022-04-24] MEDS ORDERED: Lorazepam 1 MG TAB PO SCH (03:00)
[2022-04-24 05:11] LABS: #Eosinphils 0.2 thou/uL (0.0-0.7); #Lymphocytes 1.2 thou/uL (1.20-3.40); #Monocytes 0.5 thou/uL (0.11-0.59); #Neutrophils 2.9 thou/uL (1.40-6.50); %Basophils 0.5 % (0.0-1.0); %Eosinophils 4.8 % (0.0-10.0); %Lymphocytes 25.2 % (21.0-51.0); %Monocytes 10.1 % (0.0-10.0); %Neutrophils 59.5 % (42.0-75.0); Hemoglobin 13.7 g/dL (14.0-18.0); MDiff Complete? YES; Mean Corpuscular HGB CONC 34.7 g/dL (32.0-36.0); Mean Corpuscular Hemoglobin 33.9 pg (27.0-31.0); Mean Corpuscular Volume 97.7 fL (78.0-98.0); Mean Platelet Volume 8.2 fL (7.4-10.4); Platelet Count 82 thou/uL (130-400); Platelet Morphology Comment Appears Decreased; RBC Distribution Width 11.3 % (11.5-14.5); Red Blood Cell (RBC) Count 4.04 mill/uL (4.70-6.10); Stomatocytes SLIGHT = 2-5 cells (100X) (0-1/hpf); White Blood Cell (WBC) Count 4.9 thou/uL (4.8-10.8)
[2022-04-24 05:12] LABS: ALT (SGPT) 79 U/L (8-55); AST (SGOT) 102 U/L (5-34); Albumin 3.8 g/dL (3.5-5.0); Alkaline Phosphatase 93 U/L (40-110); Anion Gap 15 mmol/L (10-20); BUN (Urea Nitrogen) 7 mg/dL (8.9-20.6); Bilirubin, Total 2.1 mg/dL (0.2-1.2); Calc. Creatinine Clearance 219 mL/min (70-130); Calcium 8.1 mg/dL (7.8-10.44); Carbon Dioxide 22 mmol/L (22-29); Chloride 98 mmol/L (98-107); Estimated GFR 117; Globulin 2.3 g/dL (2.4-3.5); Glucose 152 mg/dL (70-105); Potassium 3.4 mmol/L (3.5-5.1); Protein, Total 6.1 g/dL (6.0-8.3); Sodium 132 mmol/L (136-145)
[2022-04-24] MEDS ORDERED: Potassium Chloride 20 MEQ TAB PO SCH (08:00)
[2022-04-24] MEDS ORDERED: Lorazepam 1 MG TAB PO PRN (08:33)
[2022-04-24] MEDS: Multivit, Therapeutic 1 TAB PO SCH (08:41)
[2022-04-24] MEDS: Folic Acid 1 MG TAB PO SCH (08:41)
[2022-04-24] MEDS: Pantoprazole 40 MG VIAL IVP SCH ×2 (08:41→20:29)
[2022-04-24] MEDS: Carvedilol 6.25 MG TAB PO SCH ×2 (08:41→20:29)
[2022-04-24] MEDS: Losartan 25 MG TAB PO SCH (08:41)
[2022-04-24] MEDS: Spironolactone 25 MG TAB PO SCH ×2 (08:42→20:28)
[2022-04-24] MEDS: Amlodipine 10 MG TAB PO SCH (08:42)
[2022-04-24] MEDS: Enoxaparin Sodium 40 MG/0.4 ML SYRINGE SC SCH (09:00)
[2022-04-24] MEDS: Nicotine 14 MG PATCH TD SCH (09:00)
[2022-04-24] MEDS: Thiamine HCl 200 MG/2 ML VIAL SLOW IVP SCH (09:00)
[2022-04-24] MEDS ORDERED: hydrALAZINE 20 MG/ML VIAL SLOW IVP PRN (14:49)
[2022-04-24] MEDS ORDERED: Iopamidol-370 76% 500 ML 1 ML ONE (14:52)
[2022-04-24] MEDS: Diazepam 5 MG TAB PO SCH (20:28)
[2022-04-25] MEDS: Lorazepam 1 MG TAB PO SCH (01:47)
[2022-04-25] MEDS: Sodium Chloride 0.9% 1,000 ML IV SCH ×2 (02:04→13:26)
[2022-04-25 04:29] LABS: ALT (SGPT) 76 U/L (8-55); AST (SGOT) 100 U/L (5-34); Albumin 3.8 g/dL (3.5-5.0); Alkaline Phosphatase 95 U/L (40-110); Anion Gap 10 mmol/L (10-20); BUN (Urea Nitrogen) 5 mg/dL (8.9-20.6); Bilirubin, Total 1.4 mg/dL (0.2-1.2); Calc. Creatinine Clearance 228 mL/min (70-130); Calcium 8.5 mg/dL (7.8-10.44); Carbon Dioxide 26 mmol/L (22-29); Chloride 102 mmol/L (98-107); Estimated GFR 119; Globulin 2.3 g/dL (2.4-3.5); Glucose 142 mg/dL (70-105); Potassium 3.3 mmol/L (3.5-5.1); Protein, Total 6.1 g/dL (6.0-8.3); Sodium 135 mmol/L (136-145)
[2022-04-25] MEDS: Morphine 2 MG/ML VIAL SLOW IVP PRN (06:07)
[2022-04-25] MEDS ORDERED: Potassium Chloride 20 MEQ TAB PO SCH (08:00)
[2022-04-25] MEDS: Multivit, Therapeutic 1 TAB PO SCH (08:20)
[2022-04-25] MEDS: Diazepam 5 MG TAB PO SCH (08:20)
[2022-04-25] MEDS: Folic Acid 1 MG TAB PO SCH (08:20)
[2022-04-25] MEDS: Pantoprazole 40 MG VIAL IVP SCH ×2 (08:21→21:32)
[2022-04-25] MEDS: Losartan 25 MG TAB PO SCH (08:21)
[2022-04-25] MEDS: Amlodipine 10 MG TAB PO SCH (08:21)
[2022-04-25] MEDS: Enoxaparin Sodium 40 MG/0.4 ML SYRINGE SC SCH (08:21)
[2022-04-25] MEDS: Spironolactone 25 MG TAB PO SCH ×2 (10:34→21:33)
[2022-04-25] MEDS: Thiamine HCl 200 MG/2 ML VIAL SLOW IVP SCH (10:34)
[2022-04-25] MEDS: Nicotine 14 MG PATCH TD SCH (10:34)
[2022-04-25] MEDS: Carvedilol 6.25 MG TAB PO SCH ×2 (10:34→21:32)
[2022-04-25] MEDS: Ondansetron ODT 4 MG TAB PO PRN (13:00)
[2022-04-25] MEDS: Ondansetron PF 4 MG/2 ML Vial IVP PRN ×2 (13:00→21:39)
[2022-04-25] MEDS: Lorazepam 1 MG TAB PO PRN ×2 (13:00→21:33)
[2022-04-25] MEDS ORDERED: HYDROcodone/Acetaminophen 5/325 mg Tablet PO SCH (16:45)
[2022-04-26] MEDS: Sodium Chloride 0.9% 1,000 ML IV SCH ×3 (03:10→16:51)
[2022-04-26 04:50] LABS: #Eosinphils 0.2 thou/uL (0.0-0.7); #Lymphocytes 1.1 thou/uL (1.20-3.40); #Monocytes 0.5 thou/uL (0.11-0.59); %Basophils 0.7 % (0.0-1.0); %Eosinophils 3.9 % (0.0-10.0); %Lymphocytes 18.4 % (21.0-51.0); %Monocytes 8.6 % (0.0-10.0); %Neutrophils 68.5 % (42.0-75.0); Hemoglobin 13.5 g/dL (14.0-18.0); Mean Corpuscular HGB CONC 34.2 g/dL (32.0-36.0); Mean Corpuscular Hemoglobin 34.1 pg (27.0-31.0); Mean Corpuscular Volume 99.7 fL (78.0-98.0); Platelet Count 100 thou/uL (130-400); RBC Distribution Width 11.4 % (11.5-14.5); Red Blood Cell (RBC) Count 3.96 mill/uL (4.70-6.10); White Blood Cell (WBC) Count 5.8 thou/uL (4.8-10.8)
[2022-04-26 05:05] LABS: ALT (SGPT) 129 U/L (8-55); AST (SGOT) 169 U/L (5-34); Alkaline Phosphatase 98 U/L (40-110); Anion Gap 10 mmol/L (10-20); BUN (Urea Nitrogen) 4 mg/dL (8.9-20.6); Bilirubin, Total 1.3 mg/dL (0.2-1.2); Calc. Creatinine Clearance 219 mL/min (70-130); Calcium 8.9 mg/dL (7.8-10.44); Carbon Dioxide 28 mmol/L (22-29); Chloride 101 mmol/L (98-107); Estimated GFR 117; Globulin 2.3 g/dL (2.4-3.5); Glucose 159 mg/dL (70-105); Potassium 3.9 mmol/L (3.5-5.1); Protein, Total 6.3 g/dL (6.0-8.3); Sodium 135 mmol/L (136-145)
[2022-04-26] MEDS: Ondansetron PF 4 MG/2 ML Vial IVP PRN ×2 (05:10→21:43)
[2022-04-26] MEDS: Lorazepam 1 MG TAB PO PRN (05:10)
[2022-04-26] MEDS: Acetaminophen 325 MG TAB PO PRN (05:16)
[2022-04-26] MEDS: Losartan 25 MG TAB PO SCH (08:40)
[2022-04-26] MEDS: Nicotine 14 MG PATCH TD SCH (08:43)
[2022-04-26] MEDS: Spironolactone 25 MG TAB PO SCH ×2 (08:43→21:43)
[2022-04-26] MEDS: Folic Acid 1 MG TAB PO SCH (08:43)
[2022-04-26] MEDS: Amlodipine 10 MG TAB PO SCH (08:43)
[2022-04-26] MEDS: Enoxaparin Sodium 40 MG/0.4 ML SYRINGE SC SCH (08:43)
[2022-04-26] MEDS: Multivit, Therapeutic 1 TAB PO SCH (08:43)
[2022-04-26] MEDS: Carvedilol 6.25 MG TAB PO SCH ×2 (10:06→21:43)
[2022-04-26] MEDS: Pantoprazole 40 MG VIAL IVP SCH ×2 (10:06→21:46)
[2022-04-26] MEDS: Ondansetron ODT 4 MG TAB PO PRN (12:01)
[2022-04-26] MEDS ORDERED: tiZANidine HCl 4 MG TAB PO SCH (16:00)
[2022-04-26] MEDS: traZODone HCl 50 MG TAB PO SCH (21:43)
[2022-04-27] MEDS: Acetaminophen 325 MG TAB PO PRN (01:20)
[2022-04-27] MEDS: Sodium Chloride 0.9% 1,000 ML IV SCH ×3 (03:30→23:00)
[2022-04-27] MEDS ORDERED: Morphine 2 MG/ML VIAL SLOW IVP SCH (04:30)
[2022-04-27] MEDS: Losartan 25 MG TAB PO SCH (08:56)
[2022-04-27] MEDS: Carvedilol 6.25 MG TAB PO SCH ×2 (08:56→21:04)
[2022-04-27] MEDS: Multivit, Therapeutic 1 TAB PO SCH (08:56)
[2022-04-27] MEDS: Amlodipine 10 MG TAB PO SCH (08:56)
[2022-04-27] MEDS: Nicotine 14 MG PATCH TD SCH (08:56)
[2022-04-27] MEDS: Pantoprazole 40 MG VIAL IVP SCH ×2 (08:56→21:00)
[2022-04-27] MEDS: Spironolactone 25 MG TAB PO SCH ×2 (08:56→21:05)
[2022-04-27] MEDS: Folic Acid 1 MG TAB PO SCH (08:56)
[2022-04-27] MEDS: Enoxaparin Sodium 40 MG/0.4 ML SYRINGE SC SCH (08:56)
[2022-04-27] MEDS: Ondansetron PF 4 MG/2 ML Vial IVP PRN (11:29)
[2022-04-27] MEDS ORDERED: Naproxen 500 MG TAB PO SCH (13:00)
[2022-04-27] MEDS ORDERED: Cyclobenzaprine 10 MG TAB PO SCH ×2 (13:00→21:00)
[2022-04-27] MEDS ORDERED: CeleCOXIB 100 MG CAP PO PRN (16:38)
[2022-04-27] MEDS: traZODone HCl 50 MG TAB PO SCH (21:04)
[2022-04-28] MEDS: Amlodipine 10 MG TAB PO SCH (10:24)
[2022-04-28] MEDS: Spironolactone 25 MG TAB PO SCH (10:25)
[2022-04-28] MEDS: Carvedilol 6.25 MG TAB PO SCH (10:25)
[2022-04-28] MEDS: Folic Acid 1 MG TAB PO SCH (10:25)
[2022-04-28] MEDS: Multivit, Therapeutic 1 TAB PO SCH (10:25)
[2022-04-28] MEDS: Losartan 25 MG TAB PO SCH (10:25)
[2022-04-28] MEDS: Sodium Chloride 0.9% 1,000 ML IV SCH (10:26)
[2022-04-28] MEDS: Pantoprazole 40 MG VIAL IVP SCH (10:26)
[2022-04-28] MEDS: Enoxaparin Sodium 40 MG/0.4 ML SYRINGE SC SCH (10:26)
[2022-04-28] MEDS: Nicotine 14 MG PATCH TD SCH (10:26)
[2022-04-28 15:32] VITALS: BP 151/99; TEMP 97.3
== END 2022-04-28 13:20 | disposition home or self-care (01) | DRG 897 ==
LOC: SUATTDRO 04:14 → ERS 04:14 → ERHOLD 07:55 → 2NO 17:52
PROVIDERS: ADMIT Student in an Organized Health Care Education/Training Program; ATTEND Student in an Organized Health Care Education/Training Program
PROC: HZ2ZZZZ Detoxification Services for Substance Abuse Treatment (ICD-10-PCS; principal; 2022-04-23)
DX: F10.139 Alcohol abuse with withdrawal, unspecified (principal); E87.1 Hypo-osmolality and hyponatremia; E87.2 Acidosis; Z20.822 Contact with and (suspected) exposure to COVID-19; I10 Essential (primary) hypertension; K76.0 Fatty (change of) liver, not elsewhere classified; K29.70 Gastritis, unspecified, without bleeding; F12.10 Cannabis abuse, uncomplicated; F13.10 Sedative, hypnotic or anxiolytic abuse, uncomplicated; F11.10 Opioid abuse, uncomplicated; F10.129 Alcohol abuse with intoxication, unspecified; E80.6 Other disorders of bilirubin metabolism; R74.01 Elevation of levels of liver transaminase levels; R73.9 Hyperglycemia, unspecified; E66.9 Obesity, unspecified; Z68.33 Body mass index [BMI] 33.0-33.9, adult; Z88.8 Allergy status to other drugs, medicaments and biological substances; Z79.899 Other long term (current) drug therapy; Z87.01 Personal history of pneumonia (recurrent)
CPT/HCPCS: 36415; 36416; 71045; 71275; 74178; 80053; 80306; 80307; 81001; 82010; 83036; 83605; 83690; 83735; 83880; 84100; 84484; 85025; 85379; 93005; C9113; J0360; J1650; J1815; J2270; J2405; J3360; J3411; J3475; J7050; Q0162; Q9967; U0002